=== PATIENT | female | born 1965 ===

== ENCOUNTER 2016-10-12 12:03 | Emergency (ER) | payer SELFPAY ==
[2016-10-12 13:38] LABS: RBC URINE 2 /hpf (0-3); URINE BACTERIA RARE (<OCC); URINE BILIRUBIN NEGATIVE (NEGATIVE); URINE BLOOD NEGATIVE (NEGATIVE); URINE COLOR YELLOW (YELLOW); URINE GLUCOSE (UA) NEG (Normal); URINE KETONE NEGATIVE (NEGATIVE); URINE LEUKOCYTE ESTERASE NEG Leu/uL (Negative); URINE PROTEIN NEGATIVE (NEGATIVE); URINE UROBILINOGEN 0.2-1.0 mg/dL (0.2-1.0); WBC URINE < 1 /hpf (0-5)
--- NOTE | 2016-10-12 13:50 | ED PDOC ---
Lower Extremity Pain/Injury Time Seen by Provider: 10/12/16 12:51 Chief Complaint (Nursing): Lower Extremity Problem/Injury Chief Complaint (Provider): Lower Extremity Problem/Injury History Per: Family () History/Exam Limitations: language barrier Onset/Duration Of Symptoms: Days (x2 days) Current Symptoms Are (Timing): Still Present Additional Complaint(s): Brisa Field is a 51 year old female with no previous medical history, who presents to the emergency department accompanied by her with a complaint of bilateral pain and swelling to her feet ongoing for 2 days. Also, she states she has been experiencing headaches on the top of head radiating back towards the base. Denies any further medical complaints. PMD: none provided Past Medical History Reviewed: Historical Data, Nursing Documentation, Vital Signs Vital Signs: Last Vital Signs Temp 97.9 F 10/12/16 12:17 Pulse 93 H 10/12/16 12:17 Resp 20 10/12/16 12:17 BP 143/88 10/12/16 12:17 Pulse Ox 99 10/12/16 12:17 - Medical History PMH: Gastritis Denies: Hypercholesterolemia, Chronic Kidney Disease - Surgical History Surgical History: Other surgeries: Shoulder - Family History Family History: States: Unknown Family Hx - Social History Current smoker - smoking cessation education provided: No Alcohol: None Drugs: Denies - Home Medications Home Medications: Ambulatory Orders Medication Instructions Recorded Ciprofloxacin HCl [Cipro] 500 mg PO Q12 #20 tablet 03/28/16 Metronidazole [Flagyl] 500 mg PO Q8 #30 tablet 03/28/16 Famotidine [Pepcid] 20 mg PO BID #28 tab 03/29/16 Ondansetron [Zofran] 4 mg PO Q8H #5 tab 03/29/16 Metoclopramide [Reglan] 10 mg PO Q8 PRN #20 tab 06/24/16 - Allergies Allergies/Adverse Reactions: Allergies Allergy/AdvReac Type Severity Reaction Status Date / Time No Known Allergies Allergy Verified 10/12/16 12:17 Review of Systems ROS Statement: Except As Marked, All Systems Reviewed And Found Negative Constitutional: Negative for: Fever, Chills Musculoskeletal: Positive for: Foot Pain (B/L pain and swelling on dorsal aspect of feet) Neurological: Positive for: Headache (top of head radiates back towards base) Physical Exam - Reviewed Nursing Documentation Reviewed: Yes Vital Signs Reviewed: Yes - Physical Exam Appears: Positive for: Well, Non-toxic, No Acute Distress Head Exam: Positive for: ATRAUMATIC, NORMAL INSPECTION, NORMOCEPHALIC Skin: Positive for: Normal Color, Warm, Dry Eye Exam: Positive for: Normal appearance, EOMI, PERRL ENT: Positive for: Normal ENT Inspection Neck: Positive for: Normal, Painless ROM, Supple Cardiovascular/Chest: Positive for: Regular Rate, Rhythm Respiratory: Positive for: Normal Breath Sounds Gastrointestinal/Abdominal: Positive for: Normal Exam, Bowel Sounds, Soft. Negative for: Tenderness Back: Positive for: Normal Inspection Extremity: Positive for: Normal ROM. Negative for: Tenderness, Pedal Edema, Calf Tenderness Neurologic/Psych: Positive for: Alert, Oriented - Laboratory Results Result Diagrams: 10/12/16 13:52 10/12/16 13:16 - ECG O2 Sat by Pulse Oximetry: 99 (RA) Pulse Ox Interpretation: Normal Medical Decision Making Medical Decision Making: Initial Impression: Bilateral leg swelling, Headache Initial Plan: * CT head w/o contrast * EKG * B-type natriuretic peptide * Labs * Urine dipstick * Urine * PTT * PT * Tylenol 650 mg PO * Urinalysis * US duplex lower extremities B/L * reevaluation CT head FINDINGS: HEMORRHAGE: No intracranial hemorrhage. BRAIN: No mass effect or edema. No atrophy or chronic microvascular ischemic changes. VENTRICLES: Unremarkable. No hydrocephalus. CALVARIUM: Unremarkable. PARANASAL SINUSES: Unremarkable as visualized. No significant inflammatory changes. MASTOID AIR CELLS: Unremarkable as visualized. No inflammatory changes. OTHER FINDINGS: None. IMPRESSION: No evidence of acute intracranial hemorrhage intracranial collection mass effect or midline shift. No significant interval change since the previous exam. Scribe Attestation: Documented by Carina Christensen, acting as a scribe for Carola Foster MD. Provider Scribe Attestation: All medical record entries made by the Scribe were at my direction and personally dictated by me. I have reviewed the chart and agree that the record accurately reflects my personal performance of the history, physical exam, medical decision making, and the department course for this patient. I have also personally directed, reviewed, and agree with the discharge instructions and disposition.
[2016-10-12 14:14] LABS: BASO # 0.1 K/uL (0.0-0.2); BASO % 1.3 % (0.0-2.0); EOS # 0.1 K/uL (0.0-0.7); EOS % 1.8 % (0.0-4.0); HEMATOCRIT 37.4 % (34.0-47.0); LYMPH # 1.8 K/uL (1.0-4.3); LYMPH % 25.4 % (20.0-40.0); MEAN CELL VOLUME 88.3 fl (81.0-99.0); MEAN CORPUSCULAR HEMOGLOBIN 29.3 pg (27.0-31.0); MEAN CORPUSCULAR HGB CONC 33.1 g/dL (33.0-37.0); MEAN PLATELET VOLUME 7.9 fl (7.2-11.7); MONO # 0.4 K/uL (0.0-0.8); MONO % 5.6 % (0.0-10.0); NEUT # 4.7 K/uL (1.8-7.0); NEUT % 65.9 % (50.0-75.0); RED CELL DISTRIBUTION WIDTH 14.1 % (11.5-14.5); WHITE BLOOD COUNT 7.1 K/uL (4.8-10.8)
[2016-10-12 14:25] LABS: ALB/GLOB RATIO 1.2 (1.0-2.1); ALKALINE PHOSPHATASE 95 U/L (38-126); ALT/SGPT 30 U/L (9-52); AST/SGOT 31 U/L (14-36); BILIRUBIN,TOTAL 0.6 mg/dl (0.2-1.3); BLOOD UREA NITROGEN 8 mg/dl (7-17); CALCIUM 8.6 mg/dL (8.4-10.2); CARBON DIOXIDE 23 mmol/L (22-30); CHLORIDE 105 mmol/L (98-107); GFR AFRICAN-AMERICAN > 60; GLUCOSE,RANDOM 93 mg/dL (65-105); POTASSIUM 4.1 MMOL/L (3.6-5.0); SODIUM 139 mmol/l (132-148); TOTAL PROTEIN 8.5 G/DL (6.3-8.2)
--- NOTE | 2016-10-12 14:37 | CT ---
PROCEDURE: CT HEAD WITHOUT CONTRAST. HISTORY: LU COMPARISON: Comparison is made to the previous study dated 09/22/2014 TECHNIQUE: Axial computed tomography images were obtained through the head/brain without intravenous contrast. Radiation dose: Total exam DLP = 865.4 mGy-cm. This CT exam was performed using one or more of the following dose reduction techniques: Automated exposure control, adjustment of the mA and/or kV according to patient size, and/or use of iterative reconstruction technique. FINDINGS: HEMORRHAGE: No intracranial hemorrhage. BRAIN: No mass effect or edema. No atrophy or chronic microvascular ischemic changes. VENTRICLES: Unremarkable. No hydrocephalus. CALVARIUM: Unremarkable. PARANASAL SINUSES: Unremarkable as visualized. No significant inflammatory changes. MASTOID AIR CELLS: Unremarkable as visualized. No inflammatory changes. OTHER FINDINGS: None. IMPRESSION: No evidence of acute intracranial hemorrhage intracranial collection mass effect or midline shift. No significant interval change since the previous exam.
[2016-10-12 14:48] VITALS: RESP 18
[2016-10-12 14:55] VITALS: O2SAT 99
[2016-10-12 15:18] LABS: PARTIAL THROMBOPLASTIN TIME 24.7 Seconds (25.6-37.1)
--- NOTE | 2016-10-12 15:44 | US ---
PROCEDURE: Bilateral lower extremity venous duplex Doppler. HISTORY: BLE swelling COMPARISON: None available. TECHNIQUE: Bilateral common femoral, superficial femoral, popliteal and posterior tibial veins were evaluated. Flow was assessed with color Doppler, compressibility, assessment of phasic flow and augmentation response. FINDINGS: COMMON FEMORAL VEIN: Right CFV: Unremarkable. Left CFV: Unremarkable. SUPERFICIAL FEMORAL VEIN: Right SFV: Unremarkable. Left SFV: Unremarkable. POPLITEAL VEIN: Right Popliteal: Unremarkable. Left Popliteal: Unremarkable. POSTERIOR TIBIAL VEIN: Right PTV: Unremarkable. Left PTV: Unremarkable. OTHER FINDINGS: None. IMPRESSION: No evidence of deep venous thrombosis.
--- NOTE | 2016-10-12 15:46 | ED PDOC ---
- Laboratory Results Result Diagrams: 10/12/16 13:52 10/12/16 13:16 Interpretation Of Abn Labs: no acute - ECG ECG: Positive for: Interpreted By Me, Viewed By Me ECG Rhythm: Positive for: Normal QRS, Normal ST Segment, Sinus Rhythm O2 Sat by Pulse Oximetry: 99 (RA) Pulse Ox Interpretation: Normal - Progress ED Course And Treament: 1545: Stable. AAOx3. Pain free. Tolerated PO. Ambulating around ER. Ate [employer]. Wants to go home. Medical Decision Making Medical Decision Making: Time: 15:00 --Transferred patient from Dr. Foster --Pending CT, reassessment, and disposition. Time: 15:42 --Duplex US FINDINGS: COMMON FEMORAL VEIN: Right CFV: Unremarkable. Left CFV: Unremarkable. SUPERFICIAL FEMORAL VEIN: Right SFV: Unremarkable. Left SFV: Unremarkable. POPLITEAL VEIN: Right Popliteal: Unremarkable. Left Popliteal: Unremarkable. POSTERIOR TIBIAL VEIN: Right PTV: Unremarkable. Left PTV: Unremarkable. OTHER FINDINGS: None. IMPRESSION: No evidence of deep venous thrombosis. Scribe Attestation: Documented by Keerthi Acuña, acting as a scribe for Lenard Doss MD. Provider Scribe Attestation: All medical record entries made by the Scribe were at my direction and personally dictated by me. I have reviewed the chart and agree that the record accurately reflects my personal performance of the history, physical exam, medical decision making, and the department course for this patient. I have also personally directed, reviewed, and agree with the discharge instructions and disposition. Disposition Counseled Patient/Family Regarding: Studies Performed, Diagnosis, Need For Followup - Clinical Impression Clinical Impression: Leg swelling, Headache - POA Present On Arrival: None - Disposition Referrals: [facility] [Outside] - 10/15/16 Disposition: Routine/Home Disposition Time: 15:49 Condition: STABLE Additional Instructions: Return if not better in 3 days. Instructions: Leg Edema (ED), Acute Headache (ED) Print Language: ROMANSH
[2016-10-12 15:50] VITALS: BP 140/80; PULSE 81; TEMP 97.7
--- NOTE | 2016-10-12 19:31 | CARD ---
APPROVED REPORT EKG Measurement Heart [id number] <Conclusion> Normal sinus rhythm Normal ECG
== END 2016-10-12 16:00 | disposition home or self-care (01) ==
LOC: H.ER 12:03
DX: R60.0 Localized edema (principal); R51 Headache

== ENCOUNTER 2017-01-31 11:43 | Emergency (ER) | payer OTHER, SELFPAY ==
[2017-01-31 11:58] VITALS: BP 141/84; PULSE 76; O2SAT 98
[2017-01-31 12:20] VITALS: RESP 14; TEMP 97
== END 2017-01-31 13:09 | disposition home or self-care (01) ==
LOC: H.ER 11:43
DX: M25.561 Pain in right knee (principal)

== ENCOUNTER 2017-01-31 21:34 | Emergency (ER) | payer OTHER ==
[2017-01-31 21:45] VITALS: RESP 16; TEMP 97.9
[2017-01-31] MEDS ORDERED: Alum-Mag Hydrox-Simethicone Susp (30 mL) PO STA (22:14)
[2017-01-31] MEDS ORDERED: Sodium Chloride 0.9% 1,000 ML IV STA (22:14)
[2017-01-31] MEDS ORDERED: Alum-Mag Hydrox-Simethicone Susp (30 mL) ONE (22:46)
[2017-01-31 23:08] LABS: HEMATOCRIT 34.5 % (34.0-47.0); MEAN CELL VOLUME 89.2 fl (81.0-99.0); MEAN CORPUSCULAR HEMOGLOBIN 29.8 pg (27.0-31.0); MEAN CORPUSCULAR HGB CONC 33.5 g/dL (33.0-37.0); RED CELL DISTRIBUTION WIDTH 13.8 % (11.5-14.5); WHITE BLOOD COUNT 6.3 K/uL (4.8-10.8)
[2017-01-31 23:16] LABS: ALB/GLOB RATIO 1.2 (1.0-2.1); ALKALINE PHOSPHATASE 82 U/L (38-126); ALT/SGPT 31 U/L (9-52); AST/SGOT 28 U/L (14-36); BILIRUBIN,TOTAL 0.2 mg/dl (0.2-1.3); BLOOD UREA NITROGEN 13 mg/dl (7-17); CALCIUM 9.3 mg/dL (8.4-10.2); CARBON DIOXIDE 22 mmol/L (22-30); CHLORIDE 103 mmol/L (98-107); GFR AFRICAN-AMERICAN > 60; GLUCOSE,RANDOM 109 mg/dL (65-105); POTASSIUM 3.9 MMOL/L (3.6-5.0); SODIUM 140 mmol/l (132-148); TOTAL PROTEIN 7.8 G/DL (6.3-8.2)
[2017-02-01 00:09] VITALS: BP 150/95; PULSE 80; O2SAT 100
== END 2017-02-01 00:58 | disposition home or self-care (01) ==
LOC: H.ER 21:34
DX: K29.70 Gastritis, unspecified, without bleeding (principal)
CPT/HCPCS: 80053; 81025; 84484; 85027; 93005; 96360; 99283; J2405; J7040

== ENCOUNTER 2017-02-09 18:01 | Emergency (ER) | payer SELFPAY ==
[2017-02-09 18:09] VITALS: BP 174/104; PULSE 97; RESP 16; TEMP 98.8; O2SAT 99
[2017-02-09] MEDS ORDERED: Sodium Chloride 0.9% 1,000 ML IV STA (18:49)
--- NOTE | 2017-02-09 19:38 | ED PDOC ---
HPI: Abdomen Time Seen by Provider: 02/09/17 18:33 Chief Complaint (Nursing): Abdominal Pain Chief Complaint (Provider): abdominal pain History Per: Patient History/Exam Limitations: no limitations Additional Complaint(s): 51yo F in Ed for eval of abdominal Pain-epigastric area with associated vomiting and nausea since last night to this AM. no longer vomiting but feels nauseous and with epigastric pain 6/10 sharp without radiation to back. no hx of cholecystitis/ pancreatitis or cholecystectomy. denies change in BM, CP, palpitations, headache or vision changes. admits to heavy drinking last night 6 or more 12oz beers. hx of gastritis. Past Medical History Reviewed: Historical Data, Nursing Documentation, Vital Signs Vital Signs: Last Vital Signs Temp 98.8 F 02/09/17 18:06 Pulse 97 H 02/09/17 18:06 Resp 16 02/09/17 18:06 BP 174/104 H 02/09/17 18:06 Pulse Ox 99 02/09/17 19:51 - Medical History PMH: Gastritis Denies: Hypercholesterolemia, Chronic Kidney Disease - Surgical History Surgical History: - Family History Family History: States: Unknown Family Hx - Home Medications Home Medications: Ambulatory Orders Medication Instructions Recorded Famotidine [Pepcid] 20 mg PO BID #28 tab 02/01/17 - Allergies Allergies/Adverse Reactions: Allergies Allergy/AdvReac Type Severity Reaction Status Date / Time No Known Allergies Allergy Verified 01/31/17 21:42 Review of Systems ROS Statement: Except As Marked, All Systems Reviewed And Found Negative Constitutional: Negative for: Fever, Chills Gastrointestinal: Positive for: Nausea, Vomiting, Abdominal Pain Physical Exam - Reviewed Nursing Documentation Reviewed: Yes Vital Signs Reviewed: Yes - Physical Exam Appears: Positive for: Non-toxic, No Acute Distress, Uncomfortable Head Exam: Positive for: ATRAUMATIC, NORMAL INSPECTION, NORMOCEPHALIC Skin: Positive for: Normal Color, Warm, DRY Cardiovascular/Chest: Positive for: Regular Rate, Rhythm Respiratory: Positive for: CNT, Normal Breath Sounds Gastrointestinal/Abdominal: Positive for: Bowel Sounds, Soft, Tenderness ( epigastric tendenress) Back: Negative for: L CVA Tenderness, R CVA Tenderness Extremity: Positive for: Normal ROM Neurologic/Psych: Positive for: Alert, Oriented - ECG O2 Sat by Pulse Oximetry: 99 - Progress ED Course And Treament: most likely exacerbation of gastritis due to drinking will order IV fluids, zofran pepcid and re-eval. Orders Category Date Time Status LIPASE Stat Chem 02/09/17 19:46 Ordered Famotidine [Pepcid] Med 02/09/17 19:05 Discontinued 20 mg .ROUTE .STK-MED ONE Famotidine [Pepcid] Med 02/09/17 18:57 Stat 20 mg IVP STAT STA Ondansetron [Zofran Inj] Med 02/09/17 19:04 Discontinued 4 mg .ROUTE .STK-MED ONE Ondansetron [Zofran Inj] Med 02/09/17 18:52 Stat 4 mg IVP STAT STA Ondansetron [Zofran Inj] Med 02/09/17 18:57 Stat 4 mg IVP STAT STA Sodium Chloride 0.9% 1,000 ml Med 02/09/17 18:49 Ordered IV 1,000 mls/hr Re-evaluation Time: 19:58 Condition: Improved Disposition - Clinical Impression Clinical Impression: Gastritis - Patient ED Disposition Is Patient to be Admitted: Transfer of Care - Disposition Disposition Time: 19:58 Condition: IMPROVED Forms: [employer] (Citizen Of [place]) Patient Signed Over To: Ladonna Jaeger (pending labs)
[2017-02-09 20:08] LABS: BASO # 0.1 K/uL (0.0-0.2); BASO % 0.6 % (0.0-2.0); EOS % 0.2 % (0.0-4.0); HEMATOCRIT 38.7 % (34.0-47.0); LYMPH # 1.1 K/uL (1.0-4.3); LYMPH % 10.4 % (20.0-40.0); MEAN CELL VOLUME 88.6 fl (81.0-99.0); MEAN CORPUSCULAR HEMOGLOBIN 29.6 pg (27.0-31.0); MEAN CORPUSCULAR HGB CONC 33.4 g/dL (33.0-37.0); MEAN PLATELET VOLUME 8.4 fl (7.2-11.7); MONO # 0.3 K/uL (0.0-0.8); MONO % 2.5 % (0.0-10.0); NEUT # 9.4 K/uL (1.8-7.0); NEUT % 86.3 % (50.0-75.0); RED CELL DISTRIBUTION WIDTH 13.9 % (11.5-14.5); WHITE BLOOD COUNT 10.9 K/uL (4.8-10.8)
[2017-02-09 20:16] LABS: ALB/GLOB RATIO 1.3 (1.0-2.1); ALKALINE PHOSPHATASE 97 U/L (38-126); ALT/SGPT 31 U/L (9-52); AST/SGOT 37 U/L (14-36); BILIRUBIN,TOTAL 0.5 mg/dl (0.2-1.3); BLOOD UREA NITROGEN 9 mg/dl (7-17); CALCIUM 9.2 mg/dL (8.4-10.2); CARBON DIOXIDE 21 mmol/L (22-30); CHLORIDE 105 mmol/L (98-107); GFR AFRICAN-AMERICAN > 60; GLUCOSE,RANDOM 112 mg/dL (65-105); LIPASE 158 U/L (23-300); POTASSIUM 4.1 MMOL/L (3.6-5.0); SODIUM 144 mmol/l (132-148); TOTAL PROTEIN 8.9 G/DL (6.3-8.2)
--- NOTE | 2017-02-09 20:16 | ED PDOC ---
- Laboratory Results Result Diagrams: 02/09/17 20:00 02/09/17 20:00 - ECG O2 Sat by Pulse Oximetry: 99 Pulse Ox Interpretation: Normal - Other Rad Abd US X-Ray: Read By Radiologist X-Ray Interpretation: normal study Medical Decision Making Medical Decision Making: Case was signed out to administrative underwriter from LUCY Edwards pending Abd US and re-evaluation. 10:00 pm: patient still has epigastric pain, maalox 30 mg PO given. US pending. 11:50 pm: Patient states she feels much better after Maalox dose. US is negative. Patient aware of all diagnostic testing results, all questions answered. Prescriptions given for Pepcid and Zofran. Patient advised to drink plenty of fluids and follow-up with primary doctor in 2-3 days. Disposition Counseled Patient/Family Regarding: Studies Performed, Diagnosis, Need For Followup, Rx Given - Clinical Impression Clinical Impression: Gastritis - POA Present On Arrival: None - Disposition Referrals: [facility] [Outside] Disposition: Routine/Home Disposition Time: 23:58 Condition: IMPROVED Additional Instructions: Take prescription meds as directed. Follow dietary instructions. Follow up with primary doctor or clinic in 2-3 days. Prescriptions: Famotidine [Pepcid] 20 mg PO DAILY #30 tab Ondansetron [Zofran Odt] 4 mg PO ASDIR PRN #15 odt PRN Reason: Nausea/Vomiting Instructions: Diet for Ulcers and Gastritis (ED), Gastritis (ED) Forms: [employer] (Icelandic) Print Language: MALTESE Results - Lab Results Lab Results: 02/09/17 02/09/17 20:00 20:00 WBC 10.9 H D RBC 4.36 Hgb 12.9 Hct 38.7 MCV 88.6 MCH 29.6 MCHC 33.4 RDW 13.9 Plt Count 312 MPV 8.4 Neut % (Auto) 86.3 H Lymph % (Auto) 10.4 L Clayton % (Auto) 2.5 Eos % (Auto) 0.2 Baso % (Auto) 0.6 Neut # 9.4 H Lymph # 1.1 Clayton # 0.3 Eos # 0.0 Baso # 0.1 Sodium 144 Potassium 4.1 Chloride 105 Carbon Dioxide 21 L Anion Gap 22 H BUN 9 Creatinine 0.6 L Est GFR ( Amer) > 60 Est GFR (Non-Af Amer) > 60 Random Glucose 112 H Calcium 9.2 Total Bilirubin 0.5 AST 37 H D ALT 31 Alkaline Phosphatase 97 Total Protein 8.9 H Albumin 5.0 Globulin 3.9 Albumin/Globulin Ratio 1.3 Lipase 158
[2017-02-09] MEDS ORDERED: Alum-Mag Hydrox-Simethicone Susp (30 mL) PO STA (21:58)
[2017-02-09] MEDS ORDERED: Alum-Mag Hydrox-Simethicone Susp (30 mL) ONE (22:21)
--- NOTE | 2017-02-09 23:48 | US ---
EXAM: US Abdomen Limited, Right Upper Quadrant CLINICAL HISTORY: 51 years old, female; Pain; Abdominal pain; Colic; Additional info: Ruq pain TECHNIQUE: Real-time ultrasound of the right upper quadrant with image documentation. COMPARISON: No relevant prior studies available. FINDINGS: Liver: Liver measures 16.4 CM longitudinally. No intrahepatic bile duct dilation. Gallbladder: Gallbladder is unremarkable. No gallstones. Common bile duct: Common bile duct measures 3.6 mm which is normal. No stones. No dilation. Pancreas: Pancreas is unremarkable. Right kidney: Right kidney measures 10.8 CM longitudinally. No stones. No hydronephrosis. Aorta: Aorta is unremarkable. No aneurysm. Inferior vena cava: IVC is unremarkable. IMPRESSION: Unremarkable ultrasound of the right upper quadrant.
== END 2017-02-10 00:16 | disposition home or self-care (01) ==
LOC: H.ER 18:01
DX: K29.70 Gastritis, unspecified, without bleeding (principal)
CPT/HCPCS: 76705; 80053; 81025; 83690; 85025; 96374; 96375; 99282; J2405; J7040

== ENCOUNTER 2017-02-12 10:23 | Emergency (ER) | payer SELFPAY ==
[2017-02-12 10:48] VITALS: BP 147/79; PULSE 85; RESP 20; TEMP 97.6; O2SAT 98; BMI 32.9
--- NOTE | 2017-02-12 11:01 | ED PDOC ---
HPI: Back Time Seen by Provider: 02/12/17 10:51 Chief Complaint (Nursing): Lower Extremity Problem/Injury History Per: Patient (Low back pain x 6 months intermittent. Radiates to both legs. No weakness or parasthesias. No h/o trauma or fever. Also c/o bilat knee pain x 2 months. No h/o trauma.) Onset/Duration Of Symptoms: Other (6 months) Current Symptoms Are (Timing): Still Present Quality Of Discomfort: Aching Severity: Moderate Pain Scale Rating Of: 4 Previous Symptoms: Back Pain Exacerbating Factor(s): Movement Past Medical History Vital Signs: Last Vital Signs Temp 97.6 F 02/12/17 10:47 Pulse 85 02/12/17 10:47 Resp 20 02/12/17 10:47 BP 147/79 02/12/17 10:47 Pulse Ox 98 02/12/17 10:47 - Medical History PMH: Gastritis Denies: Hypercholesterolemia, Chronic Kidney Disease - Surgical History Surgical History: - Family History Family History: States: Unknown Family Hx - Home Medications Home Medications: Ambulatory Orders Medication Instructions Recorded Famotidine [Pepcid] 20 mg PO BID #28 tab 02/01/17 Famotidine [Pepcid] 20 mg PO DAILY #30 tab 02/09/17 Ondansetron [Zofran Odt] 4 mg PO ASDIR PRN #15 odt 02/09/17 Cyclobenzaprine [Cyclobenzaprine 10 mg PO TID #10 tab 02/12/17 HCl] Naproxen [Naprosyn] 500 mg PO Q12H #20 tab 02/12/17 - Allergies Allergies/Adverse Reactions: Allergies Allergy/AdvReac Type Severity Reaction Status Date / Time No Known Allergies Allergy Verified 01/31/17 21:42 Review of Systems Constitutional: Negative for: Fever Musculoskeletal: Positive for: Back Pain, Other (Knee pain) Neurological: Negative for: Weakness, Numbness Physical Exam - Physical Exam Appears: Positive for: Non-toxic, No Acute Distress Skin: Negative for: Rash Back: Positive for: Normal Inspection, Other (Bilat para lumbar tenderness). Negative for: Vertebral Tenderness Extremity: Positive for: Normal ROM (Knees, no swelling or deformity. No tenderness.) Neurologic/Psych: Positive for: Alert, Oriented. Negative for: Motor/Sensory Deficits - ECG O2 Sat by Pulse Oximetry: 98 Disposition - Clinical Impression Clinical Impression: Chronic pain of both knees, Chronic back pain - Patient ED Disposition Is Patient to be Admitted: No Counseled Patient/Family Regarding: Studies Performed, Diagnosis, Need For Followup, Rx Given - Disposition Referrals: Dejuan Franco MD [Staff Provider] - Disposition: Routine/Home Disposition Time: 12:22 Condition: FAIR Prescriptions: Cyclobenzaprine [Cyclobenzaprine HCl] 10 mg PO TID #10 tab Naproxen [Naprosyn] 500 mg PO Q12H #20 tab Instructions: Chronic Back Pain (ED), Knee Pain (ED) Forms: [facility] (Turkmen) Print Language: SAMI
--- NOTE | 2017-02-12 15:24 | RAD ---
PROCEDURE: Bilateral Knee Radiographs. HISTORY: Pain COMPARISON: None. FINDINGS: BONES: Right Knee: Normal. No fracture. Left Knee: Normal. No fracture. JOINTS: Right Knee: Normal. Left knee: Normal. SOFT TISSUES: Right Knee: Normal. Left Knee: Normal. JOINT EFFUSION: Right Knee: Small right suprapatellar joint effusion. Left Knee: None. OTHER FINDINGS: None. IMPRESSION: No acute fracture or significant degenerative osteoarthrosis. Small right suprapatellar joint effusion.
== END 2017-02-12 13:06 | disposition home or self-care (01) ==
LOC: H.ER 10:23
DX: M25.561 Pain in right knee (principal); M25.562 Pain in left knee; M54.9 Dorsalgia, unspecified; G89.29 Other chronic pain

== ENCOUNTER 2017-02-22 21:42 | Emergency (ER) | payer SELFPAY ==
[2017-02-22 21:42] VITALS: BMI 32.9
[2017-02-22 21:49] VITALS: BP 153/130; PULSE 110; RESP 16; TEMP 99.9; O2SAT 98
[2017-02-22] MEDS ORDERED: Promethazine/Cod 6.25mg-10mg/5ml Syr UD PO STA (22:06)
[2017-02-22] MEDS ORDERED: Albuterol-Ipratrop 3 mg / 0.5 (3 ml) UD INH STA (22:06)
--- NOTE | 2017-02-22 22:18 | ED PDOC ---
HPI: General Adult Time Seen by Provider: 02/22/17 21:50 Chief Complaint (Nursing): Fever History Per: Patient History/Exam Limitations: no limitations Additional Complaint(s): 51 y/o F c/o of cough that began 10 days ago. Cough is constant, productive with yellow thick sputum and progressively aggravating. Pt also complains of feeling feverish since 2 days ago. Pt also reports headache, chest pain, sore throat, generalized body aches and chest congestion. Pt tried OTC cough suppressant with NO improvement. LMP: today. Pt denies rash, nausea, vomiting, abdominal pain, nasal congestion, runny nose or dizziness. NKDA PMHx: denied. PSHx: denied FHx: NC SHx: No tobacco, alcohol or rec drugs. Geophysical Computer: pt currently on her period. Past Medical History Vital Signs: Last Vital Signs Temp 99.9 F H 02/22/17 23:05 Pulse 110 H 02/22/17 21:45 Resp 16 02/22/17 21:45 BP 153/130 H 02/22/17 21:45 Pulse Ox 98 02/22/17 23:18 - Medical History PMH: No Chronic Diseases, Gastritis Denies: Hypercholesterolemia, Chronic Kidney Disease - Surgical History Surgical History: - Family History Family History: States: No Known Family Hx - Home Medications Home Medications: Ambulatory Orders Medication Instructions Recorded Famotidine [Pepcid] 20 mg PO BID #28 tab 02/01/17 Famotidine [Pepcid] 20 mg PO DAILY #30 tab 02/09/17 Ondansetron [Zofran Odt] 4 mg PO ASDIR PRN #15 odt 02/09/17 Cyclobenzaprine [Cyclobenzaprine 10 mg PO TID #10 tab 02/12/17 HCl] Naproxen [Naprosyn] 500 mg PO Q12H #20 tab 02/12/17 Albuterol HFA [Ventolin HFA 90 1 - 2 puff IH Q6 PRN #1 inhaler 02/22/17 mcg/actuation (8 g)] Benzonatate [Tessalon Perle] 100 mg PO TID PRN #15 capsule 02/22/17 - Allergies Allergies/Adverse Reactions: Allergies Allergy/AdvReac Type Severity Reaction Status Date / Time No Known Allergies Allergy Verified 01/31/17 21:42 Review of Systems Constitutional: Positive for: Fever, Chills. Negative for: Sweats ENT: Positive for: Throat Pain. Negative for: Ear Pain, Ear Discharge, Nose Discharge Cardiovascular: Positive for: Chest Pain. Negative for: Palpitations, Orthopnea Respiratory: Positive for: Cough (associated with chest congestion.) Gastrointestinal: Negative for: Nausea, Vomiting, Abdominal Pain Musculoskeletal: Positive for: Other (generalized body aches.) Neurological: Positive for: Headache Physical Exam - Physical Exam Appears: Positive for: Well. Negative for: No Acute Distress Head Exam: Positive for: ATRAUMATIC, NORMAL INSPECTION Eye Exam: Positive for: EOMI, PERRL ENT: Positive for: TM Is/Are (normal.), Pharyngeal Erythema. Negative for: Sinus Pain/Drainage, Nasal Congestion, Tonsillar Swelling Neck: Positive for: Normal, Supple Cardiovascular/Chest: Positive for: Regular Rate, Rhythm Respiratory: Positive for: Decreased Breath Sounds (Congested breath sounds.). Negative for: Crackles, Rhonchi, Stridor, Wheezing Gastrointestinal/Abdominal: Positive for: Normal Exam Neurologic/Psych: Positive for: Alert, Oriented - ECG O2 Sat by Pulse Oximetry: 98 Medical Decision Making Medical Decision Makin51 y/o F presenting with productive cough, chest pain and fever. Rule out pneumonia, infectious bronchitis, an influenza. Plan: --Chest X ray --EKG --Urine dipstick --Peak flow --Rapid Influenza A/B screening --Rapid Strep A --Codeine/Promethazine --Albuterol nebulizer 23:17 Pt s/p nebulizer therapy, reports improvement of chest pain, chest congestion and sore throat. Waiting for chest X ray. 23:35 X-ray is unremarkable. Pt stable, feeling better, will be discharged. Pt educated on conservative management and to follow up with PCP within 1-2 weeks. Return to ER if No improvement. Disposition - Clinical Impression Clinical Impression: Bronchitis - Patient ED Disposition Is Patient to be Admitted: No - Disposition Disposition: Routine/Home Disposition Time: 23:38 Condition: GOOD Prescriptions: Albuterol HFA [Ventolin HFA 90 mcg/actuation (8 g)] 1 - 2 puff IH Q6 PRN #1 inhaler PRN Reason: Shortness Of Breath Benzonatate [Tessalon Perle] 100 mg PO TID PRN #15 capsule PRN Reason: Cough Instructions: Acute Bronchitis (ED) Forms: [facility] (Citizen Of [place]) Print Language: WOLOF
[2017-02-22] MEDS ORDERED: Albuterol-Ipratrop 3 mg / 0.5 (3 ml) UD ONE (22:24)
[2017-02-22] MEDS ORDERED: Promethazine/Cod 6.25mg-10mg/5ml Syr UD ONE (22:25)
[2017-02-22 23:44] LABS: URINE BACTERIA RARE (<OCC); URINE BILIRUBIN NEGATIVE (NEGATIVE); URINE BLOOD LARGE (NEGATIVE); URINE COLOR YELLOW (YELLOW); URINE GLUCOSE (UA) NEG (Normal); URINE KETONE NEGATIVE (NEGATIVE); URINE LEUKOCYTE ESTERASE MOD Leu/uL (Negative); URINE PROTEIN 30 mg/dL (NEGATIVE); URINE UROBILINOGEN 0.2-1.0 mg/dL (0.2-1.0); WBC URINE 3 /hpf (0-5)
[2017-02-23 00:21] LABS: RBC URINE 40 /hpf (0-3)
--- NOTE | 2017-02-23 08:20 | CARD ---
APPROVED REPORT EKG Measurement Heart [id number] <Conclusion> Sinus tachycardia Otherwise normal ECG
--- NOTE | 2017-02-23 10:05 | RAD ---
HISTORY: COMPARISON: 03/28/2016. TECHNIQUE: Chest PA and lateral FINDINGS: LINES AND TUBES: None. LUNG AND PLEURA: The lungs are well inflated and clear. HEART AND MEDIASTINUM: The heart is not enlarged. The hilar and mediastinal contours are within normal limits. SKELETAL STRUCTURES: The bony structures are within normal limits for the patient's age. VISUALIZED UPPER ABDOMEN: Normal. OTHER FINDINGS: None. IMPRESSION: No active pulmonary disease.
== END 2017-02-22 23:42 | disposition home or self-care (01) ==
LOC: H.ER 21:42
DX: J40 Bronchitis, not specified as acute or chronic (principal)

== ENCOUNTER 2017-06-26 07:55 | Emergency (ER) | payer OTHER ==
[2017-06-26 07:55] VITALS: BMI 32.9
[2017-06-26 08:28] VITALS: BP 145/87; PULSE 77; RESP 18; TEMP 976; O2SAT 99
--- NOTE | 2017-06-26 08:32 | ED PDOC ---
Lower Extremity Pain/Injury Time Seen by Provider: 06/26/17 08:14 Chief Complaint (Nursing): Lower Extremity Problem/Injury Chief Complaint (Provider): Bilateral Knee Pain History Per: Patient History/Exam Limitations: no limitations Onset/Duration Of Symptoms: Persistent (x4 months) Current Symptoms Are (Timing): Still Present Additional Complaint(s): Brisa Field is a 51 year old female with a history of gastritis that presents to the ED with a chief complaint of bilateral knee pain that she has been experiencing for the past four months. Patient reports that pain is worsened with movement and walking. She states that she has been taking Advil at home. Past Medical History Reviewed: Historical Data, Vital Signs Vital Signs: Last Vital Signs Temp 976 F H 06/26/17 08:16 Pulse 77 06/26/17 08:16 Resp 18 06/26/17 08:16 BP 145/87 06/26/17 08:16 Pulse Ox 99 06/26/17 08:16 - Medical History PMH: Gastritis Denies: Hypercholesterolemia, Chronic Kidney Disease - Surgical History Surgical History: - Family History Family History: States: Unknown Family Hx - Social History Current smoker - smoking cessation education provided: No Alcohol: None - Home Medications Home Medications: Ambulatory Orders Medication Instructions Recorded Famotidine [Pepcid] 20 mg PO BID #28 tab 02/01/17 Famotidine [Pepcid] 20 mg PO DAILY #30 tab 02/09/17 Ondansetron [Zofran Odt] 4 mg PO ASDIR PRN #15 odt 02/09/17 Cyclobenzaprine [Cyclobenzaprine 10 mg PO TID #10 tab 02/12/17 HCl] Naproxen [Naprosyn] 500 mg PO Q12H #20 tab 02/12/17 Albuterol HFA [Ventolin HFA 90 1 - 2 puff IH Q6 PRN #1 inhaler 02/22/17 mcg/actuation (8 g)] Benzonatate [Tessalon Perle] 100 mg PO TID PRN #15 capsule 02/22/17 Naproxen [Naprosyn] 500 mg PO BID PRN #15 tablet 06/26/17 - Allergies Allergies/Adverse Reactions: Allergies Allergy/AdvReac Type Severity Reaction Status Date / Time No Known Allergies Allergy Verified 01/31/17 21:42 Review of Systems ROS Statement: Except As Marked, All Systems Reviewed And Found Negative Musculoskeletal: Positive for: Leg Pain (b/l knee pain) Physical Exam - Reviewed Nursing Documentation Reviewed: Yes Vital Signs Reviewed: Yes - Physical Exam Appears: Positive for: Non-toxic, No Acute Distress Head Exam: Positive for: ATRAUMATIC, NORMOCEPHALIC Skin: Positive for: Normal Color, Warm Eye Exam: Positive for: EOMI, Normal appearance, PERRL Cardiovascular/Chest: Positive for: Regular Rate, Rhythm. Negative for: Murmur Respiratory: Positive for: Normal Breath Sounds. Negative for: Wheezing Pulses-Dorsalis Pedis (L): 2+ Pulses-Dorsalis Pedis (R): 2+ Gastrointestinal/Abdominal: Positive for: Normal Exam, Soft. Negative for: Tenderness Back: Positive for: Normal Inspection. Negative for: L CVA Tenderness, R CVA Tenderness Extremity: Positive for: Normal ROM (full ROM b/l knees), Tenderness ( tenderness to palpation medial to patella b/l). Negative for: Pedal Edema, Calf Tenderness, Swelling, Other (No erythema, no induration) Neurologic/Psych: Positive for: Alert, Oriented. Negative for: Motor/Sensory Deficits - ECG O2 Sat by Pulse Oximetry: 99 (RA) Pulse Ox Interpretation: Normal Medical Decision Making Medical Decision Making: Impression: Bilateral Chronic Knee Pain Plan: * X-Ray bilateral knees * Toradol 30 mg IM * Urine Preg * Reevaluation X-Ray Bilateral Knees FINDINGS: BONES: Right Knee: Normal. No fracture. Left Knee: Normal. No fracture. JOINTS: Right Knee: Normal. No osteoarthritis. Left knee: Normal. No osteoarthritis. SOFT TISSUES: Right Knee: Normal. Left Knee: Normal. JOINT EFFUSION: Right Knee: None. Left Knee: None. OTHER FINDINGS: None. IMPRESSION: Normal radiographs of the knees. Scribe Attestation: Documented by Jamee Hickey, acting as a scribe for Carola Foster MD. Provider Scribe Attestation: All medical record entries made by the Scribe were at my direction and personally dictated by me. I have reviewed the chart and agree that the record accurately reflects my personal performance of the history, physical exam, medical decision making, and the department course for this patient. I have also personally directed, reviewed, and agree with the discharge instructions and disposition. Disposition - Clinical Impression Clinical Impression: Bilateral knee pain - Disposition Referrals: [facility] [Outside] Disposition: Routine/Home Disposition Time: 09:52 Condition: STABLE Prescriptions: Naproxen [Naprosyn] 500 mg PO BID PRN #15 tablet PRN Reason: Pain, Moderate (4-7) Instructions: Chronic Knee Pain Forms: [facility] (Amharic) Print Language: ESTONIAN
--- NOTE | 2017-06-26 08:47 | RAD ---
PROCEDURE: Bilateral Knee Radiographs. HISTORY: Bilateral medial knee pain COMPARISON: None. FINDINGS: BONES: Right Knee: Normal. No fracture. Left Knee: Normal. No fracture. JOINTS: Right Knee: Normal. No osteoarthritis. Left knee: Normal. No osteoarthritis. SOFT TISSUES: Right Knee: Normal. Left Knee: Normal. JOINT EFFUSION: Right Knee: None. Left Knee: None. OTHER FINDINGS: None. IMPRESSION: Normal radiographs of the knees.
== END 2017-06-26 10:00 | disposition home or self-care (01) ==
LOC: H.ER 07:55
DX: M25.561 Pain in right knee (principal); M25.562 Pain in left knee; G89.29 Other chronic pain
CPT/HCPCS: 73560; 81025; 96372; 99283; J1885

== ENCOUNTER 2017-08-22 16:46 | Emergency (ER) | payer SELFPAY ==
[2017-08-22 16:46] VITALS: BMI 32.9
[2017-08-22] MEDS ORDERED: Sodium Chloride 0.9% 1,000 ML IV STA (17:54)
--- NOTE | 2017-08-22 18:10 | ED PDOC ---
HPI: Abdomen Time Seen by Provider: 08/22/17 17:00 Chief Complaint (Nursing): GI Problem Chief Complaint (Provider): GI Problem History Per: Patient History/Exam Limitations: no limitations Onset/Duration Of Symptoms: Hrs (x5 hours) Current Symptoms Are (Timing): Still Present Additional Complaint(s): 51 y/o female with past medical history of gastritis presents to the ED complaining of nausea, vomiting, diarrhea and chills x 5 hours. Denies fever or any further medical complaints. PMD: Ashish Sahu MD Past Medical History Reviewed: Historical Data, Nursing Documentation, Vital Signs Vital Signs: Last Vital Signs Temp 97.5 F L 08/22/17 17:09 Pulse 96 H 08/22/17 17:09 Resp 16 08/22/17 17:09 BP 144/86 08/22/17 17:09 Pulse Ox 98 08/22/17 22:59 - Medical History PMH: Gastritis Denies: Hypercholesterolemia, Chronic Kidney Disease Other PMH: Sciatica - Surgical History Surgical History: Other surgeries: Tubal ligation, Right shoulder surgery - Family History Family History: States: Unknown Family Hx - Social History Current smoker - smoking cessation education provided: No (Never Smoked) Alcohol: Other (Yes) Drugs: Denies - Home Medications Home Medications: Ambulatory Orders Medication Instructions Recorded Famotidine [Pepcid] 20 mg PO BID #28 tab 02/01/17 Famotidine [Pepcid] 20 mg PO DAILY #30 tab 02/09/17 Ondansetron [Zofran Odt] 4 mg PO ASDIR PRN #15 odt 02/09/17 Cyclobenzaprine [Cyclobenzaprine 10 mg PO TID #10 tab 02/12/17 HCl] Naproxen [Naprosyn] 500 mg PO Q12H #20 tab 02/12/17 Albuterol HFA [Ventolin HFA 90 1 - 2 puff IH Q6 PRN #1 inhaler 02/22/17 mcg/actuation (8 g)] Benzonatate [Tessalon Perle] 100 mg PO TID PRN #15 capsule 02/22/17 Naproxen [Naprosyn] 500 mg PO BID PRN #15 tablet 06/26/17 Ondansetron [Zofran] 4 mg PO Q6H PRN #5 tab 08/22/17 - Allergies Allergies/Adverse Reactions: Allergies Allergy/AdvReac Type Severity Reaction Status Date / Time No Known Allergies Allergy Verified 08/22/17 17:09 Review of Systems ROS Statement: Except As Marked, All Systems Reviewed And Found Negative (As per HPI,otherwise negative) Physical Exam - Reviewed Nursing Documentation Reviewed: Yes Vital Signs Reviewed: Yes - Physical Exam Appears: Positive for: Non-toxic, No Acute Distress Head Exam: Positive for: ATRAUMATIC, NORMAL INSPECTION, NORMOCEPHALIC Skin: Positive for: Normal Color, Warm, Dry Eye Exam: Positive for: EOMI, Normal appearance, PERRL ENT: Positive for: Normal ENT Inspection Neck: Positive for: Normal, Painless ROM, Supple Cardiovascular/Chest: Positive for: Regular Rate, Rhythm. Negative for: Murmur Respiratory: Positive for: Normal Breath Sounds. Negative for: Accessory Muscle Use, Respiratory Distress Gastrointestinal/Abdominal: Positive for: Tenderness (Slight mild epigastric tenderness). Negative for: Guarding, Rebound Back: Positive for: Normal Inspection Extremity: Positive for: Normal ROM Neurologic/Psych: Positive for: Alert, Oriented - Laboratory Results Result Diagrams: 08/22/17 18:15 08/22/17 18:15 - ECG O2 Sat by Pulse Oximetry: 98 (RA) Pulse Ox Interpretation: Normal Medical Decision Making Medical Decision Making: Time: 17:54 Initial Impression: abdominal pain rule out Gastroenteritis Plan: CMP Lipase CBC w/ differential Sodium chloride 1L IV Pepcid 20mg IVP Ondansetron 4mg IV Reevaluation --While blood cell count is 11.5 Time: 22:20 Abdomen/Pelvis CT FINDINGS: Limitations: lack of intravenous contrast Lung bases: No acute findings Heart: Borderline cardiomegaly ABDOMEN: Liver: unremarkable Gallbladder and bile ducts: No calcified stones, No ductal dilation Pancreas: Unremarkable. No ductal dilation spleen: No splenomegaly Adrenals: no mass Kidneys and Ureters: No renal calculi. No hydronephrosis Stomach and bowel: segmental areas of mild mural thickening vs underdistension of large bowel. No associated inflammatory standing. No obstruction. PELVIS: Appendix: No findings to suggest acute appendicitis Bladder: unremarkable. No stones. Reproductive: Enlarged uterus with fundal mass, likely fibroid. Tubal ligation. Probable left ovarian follicle. mild asymmetric prominence left vuvla, clinical correlation needed. ABDOMEN AND PELVIS: Intraperitoneal space: No significant fluid collection. No free air. Bones/joints: No acute fracture Soft tissues: Tiny umbilical hernia containing fat. Vasculature: Unremarkable. No aneurysm. Lymph nodes: no pathologically enlarged lymph nodes IMPRESSION: 1. Mild colitis versus underdistension. Clinical correlation is needed. 2. Incidental/non-acute findings and described above. pt aware of results. tolerated po, feels better, stable for dc. Scribe Attestation: Documented by Chandler Burger acting as a scribe for Bhakti Juárez MD. Scribe Attestation: All medical record entries made by the Scribe were at my direction and personally dictated by me. I have reviewed the chart and agree that the record accurately reflects my personal performance of the history, physical exam, medical decision making, and the department course for this patient. I have also personally directed, reviewed, and agree with the discharge instructions and disposition. Disposition - Clinical Impression Clinical Impression: Gastroenteritis - Patient ED Disposition Is Patient to be Admitted: No Counseled Patient/Family Regarding: Studies Performed, Diagnosis, Need For Followup - Disposition Referrals: [facility] [Outside] [facility] [Outside] Disposition: Routine/Home Disposition Time: 22:00 Condition: IMPROVED Additional Instructions: follow up with your primary doctor in 1-2 days return to the ED with any worsening or concerning symptoms Prescriptions: Ondansetron [Zofran] 4 mg PO Q6H PRN #5 tab PRN Reason: Nausea/Vomiting Instructions: Viral Gastroenteritis, Adult (DC) Forms: [facility] (Djiboutian) Print Language: HEBREW
[2017-08-22 18:40] LABS: BASO % 0.2 % (0.0-2.0); EOS % 0.1 % (0.0-4.0); HEMOGLOBIN 13.3 g/dL (12.0-16.0); LYMPH # 0.9 K/uL (1.0-4.3); MEAN CELL VOLUME 90.4 fl (81.0-99.0); MEAN CORPUSCULAR HEMOGLOBIN 30.2 pg (27.0-31.0); MEAN CORPUSCULAR HGB CONC 33.4 g/dL (33.0-37.0); MONO # 0.3 K/uL (0.0-0.8); MONO % 2.4 % (0.0-10.0); NEUT # 10.3 K/uL (1.8-7.0); NEUT % 89.3 % (50.0-75.0); PLATELET COUNT 312 K/uL (130-400); RBC 4.42 Mil/uL (3.80-5.20); RED CELL DISTRIBUTION WIDTH 13.5 % (11.5-14.5); WHITE BLOOD COUNT 11.5 K/uL (4.8-10.8)
[2017-08-22 18:45] LABS: BLOOD UREA NITROGEN 10 mg/dl (7-17); GFR AFRICAN-AMERICAN > 60; GFR NON-AFRICAN AMERICAN > 60
[2017-08-22 18:46] LABS: ALB/GLOB RATIO 1.1 (1.0-2.1); ALBUMIN 4.9 g/dL (3.5-5.0); ALT/SGPT 36 U/L (9-52); AST/SGOT 51 U/L (14-36); CALCIUM 9.8 mg/dL (8.4-10.2); LIPASE 89 U/L (23-300)
[2017-08-22 20:56] LABS: BANDS 5 % (0-2); LYMPHOCYTE 9 % (20-50); MONOCYTE 4 % (0-10); NEUTROPHIL 82 % (42-75); PLATELET ESTIMATE NORMAL (NORMAL); TOTAL CELLS COUNTED 100
[2017-08-22 20:57] LABS: TOXIC GRANULATION PRESENT
--- NOTE | 2017-08-22 22:21 | CT ---
EXAM: CT Abdomen and Pelvis Without Intravenous Contrast CLINICAL HISTORY: 51 years old, female; Pain and signs and symptoms; Nausea and vomiting and other: Diarrhea; Abdominal pain; Prior surgery; Surgery date: 6+ months; Surgery type: tubal ligation; Patient HX: HX of gastritis; Additional info: Abd pain TECHNIQUE: Axial computed tomography images of the abdomen and pelvis without intravenous contrast. All CT scans at this facility use one or more dose reduction techniques, viz.: automated exposure control; ma/kV adjustment per patient size (including targeted exams where dose is matched to indication; i.e. head); or iterative reconstruction technique. Coronal and sagittal reformatted images were created and reviewed. COMPARISON: CT - ABD PELVIS PO IV CONTRAST 2016-03-27 23:44 FINDINGS: Limitations: Lack of intravenous contrast. Lung bases: No acute findings. Heart: Borderline cardiomegaly. ABDOMEN: Liver: Unremarkable. Gallbladder and bile ducts: No calcified stones. No ductal dilation. Pancreas: Unremarkable. No ductal dilation. Spleen: No splenomegaly. Adrenals: No mass. Kidneys and ureters: No renal calculi. No hydronephrosis. Stomach and bowel: Segmental areas of mild mural thickening vs underdistention of large bowel. No associated inflammatory stranding. No obstruction. PELVIS: Appendix: No findings to suggest acute appendicitis. Bladder: Unremarkable. No stones. Reproductive: Enlarged uterus with fundal mass, likely fibroid. Tubal ligation. Probable left ovarian follicle. Mild asymmetric prominence left vulva, clinical correlation is needed. ABDOMEN and PELVIS: Intraperitoneal space: No significant fluid collection. No free air. Bones/joints: No acute fracture. Soft tissues: Tiny umbilical hernia containing fat. Vasculature: Unremarkable. No aneurysm. Lymph nodes: No pathologically enlarged lymph nodes. IMPRESSION: 1. Mild colitis versus underdistention. Clinical correlation is needed. 2. Incidental/non-acute findings are described above.
[2017-08-23 02:13] VITALS: BP 134/89; PULSE 82; RESP 18; TEMP 98.3; O2SAT 100
== END 2017-08-23 02:15 | disposition home or self-care (01) ==
LOC: H.ER 16:46
DX: K52.9 Noninfective gastroenteritis and colitis, unspecified (principal)
CPT/HCPCS: 74176; 80053; 81025; 83690; 85025; 96374; 99284; J2405; J7040

== ENCOUNTER 2017-09-20 15:06 | Emergency (ER) | payer SELFPAY ==
[2017-09-20 15:06] VITALS: BMI 32.9
[2017-09-20 15:27] VITALS: BP 169/90; PULSE 95; RESP 20; TEMP 98.1; O2SAT 99
[2017-09-20] MEDS ORDERED: PROPARACAINE/FLUORESCEIN SOD 100 DROP/5 ML BOTTLE OU STA (15:33)
[2017-09-20] MEDS ORDERED: PROPARACAINE/FLUORESCEIN SOD 100 DROP/5 ML BOTTLE ONE (15:36)
--- NOTE | 2017-09-20 15:40 | ED PDOC ---
HPI: Eye Injury/Pain Time Seen by Provider: 09/20/17 15:30 Chief Complaint (Nursing): Eye Problem Chief Complaint (Provider): Eye Problem History Per: Patient History/Exam Limitations: no limitations Onset/Duration Of Symptoms: Days (x1 month) Current Symptoms Are (Timing): Still Present Additional Complaint(s): 51 year old female presents to the emergency department complaining of bilateral itchiness and watering to her eyes, onset one month ago. She denies wearing glasses or contacts, and any allergies, cough, congestion, or nasal discharge. Currently, she notes burning in her left eye. PMD: none provided Past Medical History Reviewed: Historical Data, Nursing Documentation, Vital Signs Vital Signs: Last Vital Signs Temp 98.1 F 09/20/17 15:25 Pulse 95 H 09/20/17 15:25 Resp 20 09/20/17 15:25 BP 169/90 H 09/20/17 15:25 Pulse Ox 99 09/20/17 15:25 - Medical History PMH: Gastritis Denies: Hypercholesterolemia, Chronic Kidney Disease - Surgical History Surgical History: - Family History Family History: States: Unknown Family Hx - Home Medications Home Medications: Ambulatory Orders Medication Instructions Recorded Famotidine [Pepcid] 20 mg PO BID #28 tab 02/01/17 Famotidine [Pepcid] 20 mg PO DAILY #30 tab 02/09/17 Ondansetron [Zofran Odt] 4 mg PO ASDIR PRN #15 odt 02/09/17 Cyclobenzaprine [Cyclobenzaprine 10 mg PO TID #10 tab 02/12/17 HCl] Naproxen [Naprosyn] 500 mg PO Q12H #20 tab 02/12/17 Albuterol HFA [Ventolin HFA 90 1 - 2 puff IH Q6 PRN #1 inhaler 02/22/17 mcg/actuation (8 g)] Benzonatate [Tessalon Perle] 100 mg PO TID PRN #15 capsule 02/22/17 Naproxen [Naprosyn] 500 mg PO BID PRN #15 tablet 06/26/17 Ondansetron [Zofran] 4 mg PO Q6H PRN #5 tab 08/22/17 Olopatadine 0.1% Opht [Patanol 5 1 drop BOTHEYES BID #1 bottle 09/20/17 Ml] - Allergies Allergies/Adverse Reactions: Allergies Allergy/AdvReac Type Severity Reaction Status Date / Time No Known Allergies Allergy Verified 09/20/17 15:25 Review of Systems ROS Statement: Except As Marked, All Systems Reviewed And Found Negative Eyes: Positive for: Other (bilateral itchiness and watering to eyes; burning in left eye) ENT: Negative for: Nose Congestion Respiratory: Negative for: Cough Physical Exam - Reviewed Nursing Documentation Reviewed: Yes Vital Signs Reviewed: Yes - Physical Exam Appears: Positive for: Non-toxic, No Acute Distress Head Exam: Positive for: ATRAUMATIC, NORMOCEPHALIC Skin: Positive for: Normal Color, Warm, Dry Eye Exam: Positive for: Conjunctival injection (minimal bilaterally), Other ( bilateral irritation noted to bilateral lower eyelids) ENT: Positive for: Normal ENT Inspection Neck: Positive for: Normal, Painless ROM, Supple Cardiovascular/Chest: Positive for: Regular Rate, Rhythm. Negative for: Murmur Respiratory: Positive for: Normal Breath Sounds. Negative for: Accessory Muscle Use, Respiratory Distress Neurologic/Psych: Positive for: Alert, Oriented - ECG O2 Sat by Pulse Oximetry: 99 (RA) Pulse Ox Interpretation: Normal Medical Decision Making Medical Decision Making: Time: 15:33 Initial Plan: --Flucaine eye drops 1 drop OU --Eye exam 15:40 Eye Exam 20/20 left eye 20/20 right eye 20/15 both eyes 15:50 No fluorescein uptake. Scribe Attestation: Documented by Amanda Chun, acting as a scribe for Poonam Burger PA-C Provider Scribe Attestation: All medical record entries made by the Scribe were at my direction and personally dictated by me. I have reviewed the chart and agree that the record accurately reflects my personal performance of the history, physical exam, medical decision making, and the department course for this patient. I have also personally directed, reviewed, and agree with the discharge instructions and disposition. Disposition - Clinical Impression Clinical Impression: Allergic conjunctivitis - Patient ED Disposition Is Patient to be Admitted: No - Disposition Referrals: Rey Mock MD [Staff Provider] - [facility] [Outside] Disposition Time: 15:54 Condition: FAIR Prescriptions: Olopatadine 0.1% Opht [Patanol 5 Ml] 1 drop BOTHEYES BID #1 bottle Instructions: Conjunctivitis (Noninfectious Pinkeye) (DC) Forms: [facility] (Chinese) Print Language: CHINESE
== END 2017-09-20 16:25 | disposition home or self-care (01) ==
LOC: H.ER 15:06
DX: H10.10 Acute atopic conjunctivitis, unspecified eye (principal)

== ENCOUNTER 2018-01-15 10:07 | Emergency (ER) | payer SELFPAY ==
[2018-01-15 10:08] VITALS: BMI 32.9
[2018-01-15 10:20] VITALS: BP 154/87; PULSE 90; RESP 16; TEMP 97.7; O2SAT 100
--- NOTE | 2018-01-15 11:17 | RAD ---
Date of service: 01/15/2018 HISTORY: Foreign body sensation COMPARISON: None FINDINGS: Anterior cervical spondylosis C5-C6 with trace intervening disc space narrowing here. No radiopaque foreign body noted. No osseous additional pathology seen. Incidentally noted are small bilateral C7 cervical ribs developmental variants IMPRESSION: No radiopaque foreign body. No gross airway compromise seen. Anterior cervical spondylosis
--- NOTE | 2018-01-15 11:47 | ED PDOC ---
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 Patient states she was eating salad with howard lettuce and felt a piece of lettuce stuck in her right side of the throat area with continuos foreign body sensation. She states the sensation become worse when eating or drinking. Denies fever, throat swelling or pain. PMD: Non H Provider Past Medical History Reviewed: Historical Data, Nursing Documentation, Vital Signs Vital Signs: Last Vital Signs Temp 97.7 F 01/15/18 10:19 Pulse 90 01/15/18 10:19 Resp 16 01/15/18 10:19 BP 154/87 H 01/15/18 10:19 Pulse Ox 100 01/15/18 12:15 - Medical History PMH: Gastritis Denies: Hypercholesterolemia, Chronic Kidney Disease - Surgical History Surgical History: - Family History Family History: States: Unknown Family Hx - Social History Current smoker - smoking cessation education provided: No Alcohol: Social Drugs: Denies - Home Medications Home Medications: Ambulatory Orders Medication Instructions Recorded Famotidine [Pepcid] 20 mg PO BID #28 tab 02/01/17 Famotidine [Pepcid] 20 mg PO DAILY #30 tab 02/09/17 Ondansetron [Zofran Odt] 4 mg PO ASDIR PRN #15 odt 02/09/17 Cyclobenzaprine [Cyclobenzaprine 10 mg PO TID #10 tab 02/12/17 HCl] Naproxen [Naprosyn] 500 mg PO Q12H #20 tab 02/12/17 Albuterol HFA [Ventolin HFA 90 1 - 2 puff IH Q6 PRN #1 inhaler 02/22/17 mcg/actuation (8 g)] Benzonatate [Tessalon Perle] 100 mg PO TID PRN #15 capsule 02/22/17 Naproxen [Naprosyn] 500 mg PO BID PRN #15 tablet 02/28/18 Ondansetron [Zofran] 4 mg PO Q6H PRN #5 tab 08/22/17 Olopatadine 0.1% Opht [Patanol 5 1 drop BOTHEYES BID #1 bottle 09/20/17 Ml] - Allergies Allergies/Adverse Reactions: Allergies Allergy/AdvReac Type Severity Reaction Status Date / Time No Known Allergies Allergy Verified 09/20/17 15:25 Review of Systems ROS Statement: Except As Marked, All Systems Reviewed And Found Negative Constitutional: Negative for: Fever ENT: Positive for: Other (foreign body sensation on right lower neck area). Negative for: Throat Pain, Throat Swelling Psych: Negative for: Suicidal ideation (homicidal ideation ) Physical Exam - Reviewed Nursing Documentation Reviewed: Yes Vital Signs Reviewed: Yes - Physical Exam Appears: Positive for: Non-toxic, No Acute Distress Head Exam: Positive for: ATRAUMATIC, NORMAL INSPECTION, NORMOCEPHALIC Skin: Positive for: Normal Color, Warm, Dry ENT: Positive for: Normal ENT Inspection (able to swallow saliva). Negative for : Pharyngeal Erythema, Tonsillar Exudate, Tonsillar Swelling Neck: Positive for: Normal (no mass or thyromegaly), Painless ROM, Supple. Negative for: Decreased ROM Cardiovascular/Chest: Positive for: Regular Rate, Rhythm. Negative for: Murmur Respiratory: Positive for: Normal Breath Sounds. Negative for: Decreased Breath Sounds, Wheezing, Respiratory Distress Neurologic/Psych: Positive for: Alert, Oriented (x3). Negative for: Motor/ Sensory Deficits - ECG O2 Sat by Pulse Oximetry: 100 (RA) Pulse Ox Interpretation: Normal Medical Decision Making Medical Decision Making: Time: 1058 --Lidocain 2% Viscous 15ml PO --Neck Soft Tissue [RAD] --Reevaluation Time: 1115 Date of service: 01/15/2018 HISTORY: Foreign body sensation COMPARISON: None FINDINGS: Anterior cervical spondylosis C5-C6 with trace intervening disc space narrowing here. No radiopaque foreign body noted. No osseous additional pathology seen. Incidentally noted are small bilateral C7 cervical ribs developmental variants IMPRESSION: No radiopaque foreign body. No gross airway compromise seen. Anterior cervical spondylosis On reevaluation, patient shows moderate improvement in symptoms and not in distress. Results were discussed with patient using downstairs maid, [id number]. Clinical Impression: Globus syndrome Upon provider evaluation patient is medically stable, and requires no further treatment in the ED at this time. Patient will be discharged. Counseling was provided and all questions were answered regarding diagnosis and need for follow up with ENT specialist or [facility] for further evaluation. There is agreement to discharge plan. Return if symptoms persist or worsen. Scribe Attestation: Documented by Erica Louis, acting as a scribe for Max Waldron PA-C. Provider Scribe Attestation: All medical record entries made by the Scribe were at my direction and personally dictated by me. I have reviewed the chart and agree that the record accurately reflects my personal performance of the history, physical exam, medical decision making, and the department course for this patient. I have also personally directed, reviewed, and agree with the discharge instructions and disposition. Disposition - Clinical Impression Clinical Impression: Globus syndrome - Patient ED Disposition Is Patient to be Admitted: No - Disposition Referrals: [facility] [Outside] [facility] [Outside] Christian Rivera MD [Staff Provider] - Disposition: Routine/Home Disposition Time: 11:46 Condition: IMPROVED Additional Instructions: FOLLOW UP WITH ENT FOR FURTHER EVALUATION LATOYA FORTE, thank you for letting us take care of you today. Your provider was Pernell Barahona III, DO and you were treated for DIFFICULTLY SWALLOWING. The emergency medical care you received today was directed at your acute symptoms. If you were prescribed any medication, please fill it and take as directed. It may take several days for your symptoms to resolve. Return to the Emergency Department if your symptoms worsen, do not improve, or if you have any other problems. Please contact your doctor or call one of the physicians/clinics you have been referred to that are listed on the Patient Visit Information form that is included in your discharge packet. Bring any paperwork you were given at discharge with you along with any medications you are taking to your follow up visit. Our treatment cannot replace ongoing medical care by a primary care provider outside of the emergency department. Thank you for allowing the [employer] team to be part of your care today. If you had an X-Ray or CT scan: A Radiologist will review the ED reading if any change in treatment is needed we will contact you. If you had a blood, urine, or wound culture: It will take several days for the results, if any change in treatment is needed we will contact you. If you had an STI test: It will take 48 hours for the results. Please call after 1 week if you have not heard back. Forms: [employer] (Djiboutian) Print Language: FAROESE
== END 2018-01-15 11:57 | disposition home or self-care (01) ==
LOC: H.ER 10:07
DX: F45.8 Other somatoform disorders (principal)

== ENCOUNTER 2018-04-16 08:45 | Emergency (ER) | payer OTHER ==
[2018-04-16 08:45] VITALS: BMI 32.9
[2018-04-16 08:50] VITALS: RESP 18
--- NOTE | 2018-04-16 09:05 | ED PDOC ---
HPI: CCC, URI, Sore Throat Time Seen by Provider: 04/16/18 08:57 Chief Complaint (Nursing): Cough, Cold, Congestion History Per: Patient Onset/Duration Of Symptoms: Days (7) Current Symptoms Are (Timing): Still Present Location Of Pain: Diffuse Myalgias Sick Contacts (Context): None Associated Symptoms: Fever, Cough, Sputum Severity: Mild Additional Complaint(s): Cough productive green sputum x 1 week.Assoc with fever and body aches. Denies SOB. No NVD Past Medical History Vital Signs: Last Vital Signs Temp 97.9 F 04/16/18 08:49 Pulse 90 04/16/18 08:49 Resp 18 04/16/18 08:49 BP 170/89 H 04/16/18 08:49 Pulse Ox 97 04/16/18 08:49 - Medical History PMH: Gastritis Denies: Hypercholesterolemia, Chronic Kidney Disease - Surgical History Surgical History: - Family History Family History: States: Unknown Family Hx - Home Medications Home Medications: Ambulatory Orders Medication Instructions Recorded Famotidine [Pepcid] 20 mg PO BID #28 tab 02/01/17 Famotidine [Pepcid] 20 mg PO DAILY #30 tab 02/09/17 Ondansetron [Zofran Odt] 4 mg PO ASDIR PRN #15 odt 02/09/17 Cyclobenzaprine [Cyclobenzaprine 10 mg PO TID #10 tab 02/12/17 HCl] Naproxen [Naprosyn] 500 mg PO Q12H #20 tab 02/12/17 Albuterol HFA [Ventolin HFA 90 1 - 2 puff IH Q6 PRN #1 inhaler 02/22/17 mcg/actuation (8 g)] Benzonatate [Tessalon Perle] 100 mg PO TID PRN #15 capsule 02/22/17 Naproxen [Naprosyn] 500 mg PO BID PRN #15 tablet 06/26/17 Ondansetron [Zofran] 4 mg PO Q6H PRN #5 tab 08/22/17 Olopatadine 0.1% Opht [Patanol 5 1 drop BOTHEYES BID #1 bottle 09/20/17 Ml] Azithromycin [Zithromax] 250 mg PO DAILY #6 tab 04/16/18 Benzonatate [Tessalon Perle] 100 mg PO Q8 #10 capsule 04/16/18 - Allergies Allergies/Adverse Reactions: Allergies Allergy/AdvReac Type Severity Reaction Status Date / Time No Known Allergies Allergy Verified 09/20/17 15:25 Review of Systems ROS Statement: Except As Marked, All Systems Reviewed And Found Negative Constitutional: Positive for: Fever Respiratory: Positive for: Cough Physical Exam - Reviewed Nursing Documentation Reviewed: Yes Vital Signs Reviewed: Yes - Physical Exam Appears: Positive for: Non-toxic, No Acute Distress Head Exam: Positive for: ATRAUMATIC, NORMAL INSPECTION, NORMOCEPHALIC Skin: Positive for: Normal Color, Warm, DRY Eye Exam: Positive for: EOMI, Normal appearance, PERRL ENT: Positive for: Normal ENT Inspection Neck: Positive for: Normal, Painless ROM Cardiovascular/Chest: Positive for: Regular Rate, Rhythm Respiratory: Positive for: CNT, Normal Breath Sounds Gastrointestinal/Abdominal: Positive for: Normal Exam, Soft Back: Positive for: Normal Inspection Extremity: Positive for: Normal ROM Neurologic/Psych: Positive for: Alert, Oriented - ECG O2 Sat by Pulse Oximetry: 97 Disposition - Clinical Impression Clinical Impression: Bronchitis - Patient ED Disposition Is Patient to be Admitted: No Counseled Patient/Family Regarding: Studies Performed, Diagnosis, Need For Followup, Rx Given - Disposition Referrals: [facility] [Outside] Disposition: Routine/Home Disposition Time: 09:55 Condition: FAIR Prescriptions: Azithromycin [Zithromax] 250 mg PO DAILY #6 tab Benzonatate [Tessalon Perle] 100 mg PO Q8 #10 capsule Instructions: Acute Bronchitis Forms: [employer] (Emirati)
--- NOTE | 2018-04-16 09:42 | RAD ---
Date of service: 04/16/2018 HISTORY: cough COMPARISON: 02/22/2017 TECHNIQUE: Chest PA and lateral FINDINGS: LUNGS: No active pulmonary disease. PLEURA: No significant pleural effusion identified. No pneumothorax apparent. CARDIOVASCULAR: There is absence of aortic atherosclerotic calcification on x-ray. Normal cardiac size. No pulmonary vascular congestion. OSSEOUS STRUCTURES: No significant abnormalities. VISUALIZED UPPER ABDOMEN: Normal. OTHER FINDINGS: None. IMPRESSION: No active disease. No interval pathology noted.
[2018-04-16 10:56] VITALS: BP 154/90; PULSE 80; TEMP 97.5; O2SAT 100
== END 2018-04-16 10:25 | disposition home or self-care (01) ==
LOC: H.ER 08:45
DX: J40 Bronchitis, not specified as acute or chronic (principal)

== ENCOUNTER 2018-04-24 13:51 | Observation (INO) | payer MEDICAID, OTHER ==
[2018-04-24 13:51] VITALS: BMI 32.9
[2018-04-24] MEDS ORDERED: Sodium Chloride 0.9% 1,000 ML IV STA (14:13)
--- NOTE | 2018-04-24 14:18 | ED PDOC ---
HPI: Abdomen Time Seen by Provider: 04/24/18 14:00 Chief Complaint (Nursing): GI Problem History Per: Patient Onset/Duration Of Symptoms: Days (1) Current Symptoms Are (Timing): Still Present Severity: Moderate Location Of Pain/Discomfort: Diffuse Quality Of Discomfort: Unable To Describe Associated Symptoms: Nausea, Vomiting, Diarrhea. denies: Fever Exacerbating Factors: None Alleviating Factors: None Additional Complaint(s): Diffuse abd pain assoc with vomiting and diarrhea since thjis AM. Denies fever or bloody stools. Denies urinary sxs Past Medical History Vital Signs: Last Vital Signs Temp 98.1 F 04/24/18 13:55 Pulse 108 H 04/24/18 13:55 Resp 16 04/24/18 13:55 BP 166/95 H 04/24/18 13:55 Pulse Ox 98 04/24/18 13:55 - Medical History PMH: Gastritis Denies: Hypercholesterolemia, Chronic Kidney Disease - Surgical History Surgical History: - Family History Family History: States: Unknown Family Hx - Home Medications Home Medications: Ambulatory Orders Medication Instructions Recorded Famotidine [Pepcid] 20 mg PO BID #28 tab 02/01/17 Famotidine [Pepcid] 20 mg PO DAILY #30 tab 02/09/17 Ondansetron [Zofran Odt] 4 mg PO ASDIR PRN #15 odt 02/09/17 Cyclobenzaprine [Cyclobenzaprine 10 mg PO TID #10 tab 02/12/17 HCl] Naproxen [Naprosyn] 500 mg PO Q12H #20 tab 02/12/17 Albuterol HFA [Ventolin HFA 90 1 - 2 puff IH Q6 PRN #1 inhaler 02/22/17 mcg/actuation (8 g)] Benzonatate [Tessalon Perle] 100 mg PO TID PRN #15 capsule 02/22/17 Naproxen [Naprosyn] 500 mg PO BID PRN #15 tablet 06/26/17 Ondansetron [Zofran] 4 mg PO Q6H PRN #5 tab 08/22/17 Olopatadine 0.1% Opht [Patanol 5 1 drop BOTHEYES BID #1 bottle 09/20/17 Ml] Azithromycin [Zithromax] 250 mg PO DAILY #6 tab 04/16/18 Benzonatate [Tessalon Perle] 100 mg PO Q8 #10 capsule 04/16/18 - Allergies Allergies/Adverse Reactions: Allergies Allergy/AdvReac Type Severity Reaction Status Date / Time No Known Allergies Allergy Verified 04/24/18 13:54 Review of Systems ROS Statement: Except As Marked, All Systems Reviewed And Found Negative Constitutional: Negative for: Fever Gastrointestinal: Positive for: Vomiting, Abdominal Pain, Diarrhea Physical Exam - Reviewed Nursing Documentation Reviewed: Yes Vital Signs Reviewed: Yes - Physical Exam Appears: Positive for: Non-toxic, No Acute Distress Head Exam: Positive for: ATRAUMATIC, NORMAL INSPECTION, NORMOCEPHALIC Skin: Positive for: Normal Color, Warm, DRY Eye Exam: Positive for: EOMI, Normal appearance, PERRL ENT: Positive for: Normal ENT Inspection Neck: Positive for: Normal, Painless ROM Cardiovascular/Chest: Positive for: Regular Rate, Rhythm Respiratory: Positive for: CNT, Normal Breath Sounds Gastrointestinal/Abdominal: Positive for: Soft, Tenderness (Difuse) Back: Positive for: Normal Inspection Extremity: Positive for: Normal ROM Neurologic/Psych: Positive for: Alert, Oriented - ECG O2 Sat by Pulse Oximetry: 98 Disposition - Clinical Impression Clinical Impression: Gastroenteritis - Patient ED Disposition Is Patient to be Admitted: Transfer of Care - Disposition Disposition: Transfer of Care Disposition Time: 15:00 Condition: FAIR Forms: [employer] (Greek) Patient Signed Over To: Lenard Doss
[2018-04-24 14:52] LABS: BASO % 0.2 % (0.0-2.0); EOS # 0.1 K/uL (0.0-0.7); EOS % 0.4 % (0.0-4.0); LYMPH # 0.6 K/uL (1.0-4.3); LYMPH % 4.1 % (20.0-40.0); MEAN CELL VOLUME 89.5 fl (81.0-99.0); MEAN CORPUSCULAR HEMOGLOBIN 29.6 pg (27.0-31.0); MEAN CORPUSCULAR HGB CONC 33.1 g/dL (33.0-37.0); MEAN PLATELET VOLUME 7.9 fl (7.2-11.7); MONO # 0.4 K/uL (0.0-0.8); MONO % 2.9 % (0.0-10.0); NEUT # 13.3 K/uL (1.8-7.0); NEUT % 92.4 % (50.0-75.0); NRBC % 0.1 % (0.0-0.0); PLATELET COUNT 284 K/uL (130-400); RBC 4.38 Mil/uL (3.80-5.20); RED CELL DISTRIBUTION WIDTH 13.3 % (11.5-14.5); WHITE BLOOD COUNT 14.3 K/uL (4.8-10.8)
[2018-04-24 14:54] LABS: ALB/GLOB RATIO 1.1 (1.0-2.1); ALBUMIN 4.7 g/dL (3.5-5.0); ALT/SGPT 28 U/L (9-52); AST/SGOT 32 U/L (14-36); BLOOD UREA NITROGEN 14 mg/dl (7-17); CALCIUM 9.1 mg/dL (8.4-10.2); GFR NON-AFRICAN AMERICAN > 60
[2018-04-24] MEDS ORDERED: Iohexol 300 100 ML IJ ONE (15:52)
[2018-04-24] MEDS ORDERED: Sodium Chloride 0.9% 50 ML IV ONE (15:53)
--- NOTE | 2018-04-24 16:35 | CT ---
Date of service: 04/24/2018 PROCEDURE: CT Abdomen and Pelvis with contrast HISTORY: Abdominal pain COMPARISON: 08/22/2017. TECHNIQUE: CT scan of the abdomen and pelvis was performed after administration of intravenous contrast. Oral contrast was not administered. Coronal and sagittal reformatted images were obtained. Contrast dose: 95 mL Omnipaque 300 Radiation dose: Total exam DLP = 931.48 mGy-cm. This CT exam was performed using one or more of the following dose reduction techniques: Automated exposure control, adjustment of the mA and/or kV according to patient size, and/or use of iterative reconstruction technique. FINDINGS: LOWER THORAX: The visualized lungs are clear. LIVER: Fatty liver. Normal in size with homogeneous enhancement. No gross lesion or ductal dilatation. GALLBLADDER AND BILE DUCTS: Well distended. No calcified gallstones, wall thickening or pericholecystic fluid. PANCREAS: Normal in size with homogeneous enhancement. No gross lesion or ductal dilatation. SPLEEN: Mild splenomegaly. Normal homogeneous enhancement. ADRENALS: No discrete nodule. KIDNEYS AND URETERS: Normal in size with homogeneous enhancement. No hydronephrosis. No solid mass. VASCULATURE: No aortic aneurysm. BOWEL: Evaluation of the bowel is limited in the absence of oral contrast. There are fluid-filled mildly dilated small bowel loops. There is diffuse fatty infiltration in the decompressed colonic wall and in the terminal ileum. APPENDIX: Normal appendix. PERITONEUM: No free fluid. No free air. LYMPH NODES: No enlarged lymph nodes. BLADDER: Well distended and normal in appearance. REPRODUCTIVE: The uterus is enlarged. There is a large intramural anterior fundal fibroid. There is a stable 1.9 cm cyst in the left ovary. BONES: No acute fracture. Within normal limits for the patient's age. OTHER FINDINGS: None. IMPRESSION: Fluid-filled mildly dilated small bowel loops may represent nonspecific infectious/inflammatory enteritis. Diffuse fatty infiltration in the colonic wall likely related to chronic colitis. Large intramural anterior fundal fibroid.
[2018-04-24 16:57] LABS: BANDS 1 % (0-2); LYMPHOCYTE 8 % (20-50); MONOCYTE 1 % (0-10); NEUTROPHIL 90 % (42-75); TOTAL CELLS COUNTED 100
[2018-04-24 16:58] LABS: PLATELET ESTIMATE NORMAL (NORMAL)
--- NOTE | 2018-04-24 18:33 | ED PDOC ---
- Laboratory Results Result Diagrams: 04/24/18 14:35 04/24/18 14:35 Interpretation Of Abn Labs: 14.3 wbc - ECG O2 Sat by Pulse Oximetry: 98 Pulse Ox Interpretation: Normal - Progress ED Course And Treament: 1500: Took over care from Dr. Baltazar. Fu with labs and imaging. Diffuse abd pain. 1831: Stable. AAOx3. Still pain and nausea. Will give IV tx and antibiotics. Spoke with Dr. Rouse. Will admit. Disposition - Clinical Impression Clinical Impression: Abdominal pain, Colitis - POA Present On Arrival: None - Disposition Disposition: Hospitalized as Observation Patient Disposition Time: 18:00 Condition: FAIR
[2018-04-24] MEDS ORDERED: metroNIDAZOLE 500mg/100ml NS 100 ML IV STA (18:41)
[2018-04-24] MEDS ORDERED: cefTRIAXone (Rocephin) 1 gm Inj IV ONE (18:41)
[2018-04-24] MEDS ORDERED: cefTRIAXone (Rocephin) 1 gm Inj ONE (18:57)
--- NOTE | 2018-04-24 19:04 | CP.PCM.HP ---
<Ashish Sahu - Last Filed: 04/24/18 20:34> History of Present Illness - History of Present Illness History of Present Illness: 52 y/o female patient presents to the ED c/o of generalized abdominal pain for 4 days associated with 15 episodes of nbnb vomit since then and also states multiples episodes of watery diarrhea, also nausea. She feel weak. She denies fever, LU/chills, chest pain, shortness of breath, palpitations, dizziness, melena, hematemesis, no recent travels, sick contacts or new foods. Denies urinary sx. She had a previous admission in 2016 for colitis. PMD: [facility] PMH: gastritis Meds: advil PRN Allergies: nkda FMH: mom with HTN PSH: R shoulder arthroscopy, c section and BTL in 1994 SH: denies etoh, tobacco, drugs; lives with spouse and son. Present on Admission - Present on Admission Any Indicators Present on Admission: No Review of Systems - Review of Systems All systems: reviewed and no additional remarkable complaints except (HPI) Past Patient History - Infectious Disease Hx of Infectious Diseases: None - Past Medical History & Family History Past Medical History?: Yes - Past Social History Smoking Status: Never Smoked - CARDIAC Hx Hypercholesterolemia: No - PULMONARY Hx Respiratory Disorders: No - NEUROLOGICAL Hx Neurological Disorder: No - HEENT Hx HEENT Problems: No - RENAL Hx Chronic Kidney Disease: No - ENDOCRINE/METABOLIC Hx Endocrine Disorders: No - HEMATOLOGICAL/ONCOLOGICAL Hx Blood Disorders: No - INTEGUMENTARY Hx Dermatological Problems: No - MUSCULOSKELETAL/RHEUMATOLOGICAL Hx Musculoskeletal Disorders: Yes Other/Comment: Sciatica - GASTROINTESTINAL Hx Gastritis: Yes - GENITOURINARY/GYNECOLOGICAL Hx Genitourinary Disorders: No - PSYCHIATRIC Hx Psychophysiologic Disorder: No Hx Substance Use: No - SURGICAL HISTORY Hx Surgeries: Yes Hx Orthopedic Surgery: Yes (right shoulder surgery) Hx Tubal Ligation: Yes - ANESTHESIA Hx Anesthesia: Yes Hx Anesthesia Reactions: No Meds Allergies/Adverse Reactions: Allergies Allergy/AdvReac Type Severity Reaction Status Date / Time No Known Allergies Allergy Verified 04/24/18 13:54 Physical Exam - Constitutional Appears: In Acute Distress (due to abdominal pain) - Head Exam Head Exam: NORMAL INSPECTION - Eye Exam Eye Exam: EOMI, PERRL - Respiratory Exam Respiratory Exam: Clear to Auscultation Bilateral, NORMAL BREATHING PATTERN - Cardiovascular Exam Cardiovascular Exam: REGULAR RHYTHM, +S1, +S2. absent: Tachycardia - GI/Abdominal Exam GI & Abdominal Exam: Normal Bowel Sounds, Soft, Tenderness (diffuse). absent: Distended - Extremities Exam Extremities exam: Negative for: pedal edema - Neurological Exam Neurological exam: Alert, CN II-XII Intact, Oriented x3 - Skin Skin Exam: Dry, Warm Results - Vital Signs Recent Vital Signs: Last Vital Signs Temp 98.7 F 04/24/18 18:20 Pulse 108 H 04/24/18 13:55 Resp 16 04/24/18 13:55 BP 166/95 H 04/24/18 13:55 Pulse Ox 98 04/24/18 18:45 - Labs Result Diagrams: 04/24/18 14:35 04/24/18 14:35 Labs: Laboratory Results - last 24 hr 04/24/18 04/24/18 14:35 14:35 WBC 14.3 H D RBC 4.38 Hgb 13.0 Hct 39.2 MCV 89.5 MCH 29.6 MCHC 33.1 RDW 13.3 Plt Count 284 MPV 7.9 Neut % (Auto) 92.4 H Lymph % (Auto) 4.1 L Martin % (Auto) 2.9 Eos % (Auto) 0.4 Baso % (Auto) 0.2 Neut # (Auto) 13.3 H Lymph # (Auto) 0.6 L Martin # (Auto) 0.4 Eos # (Auto) 0.1 Baso # (Auto) 0.0 Neutrophils % (Manual) 90 H Band Neutrophils % 1 Lymphocytes % (Manual) 8 L Monocytes % (Manual) 1 Platelet Estimate Normal RBC Morphology Normal Sodium 139 Potassium 4.6 Chloride 102 Carbon Dioxide 25 Anion Gap 17 BUN 14 Creatinine 0.6 L Est GFR ( Amer) > 60 Est GFR (Non-Af Amer) > 60 Random Glucose 139 H Calcium 9.1 Total Bilirubin 0.6 AST 32 ALT 28 Alkaline Phosphatase 117 Total Protein 8.8 H Albumin 4.7 Globulin 4.1 H Albumin/Globulin Ratio 1.1 Assessment & Plan - Assessment and Plan (Free Text) Assessment: 52 yo female patient with PMH of gastritis admitted with colitis Plan: Colitis - afebrile, VSS - admit to med surg - Abd CT: Fluid-filled mildly dilated small bowel loops may represent nonspe cific infectious/inflammatory enteritis. Diffuse fatty infiltration in the colonic wall likely related to chronic colitis. - NPO - IV fluids - IV flagyl and ceftriaxone - zofran prn - f/u labs and cx in am Leukocytosis - 2/2 to inflamation - WBC 14.3, lactate 1.3 - afebrile - f/u labs and cx DVT prophylaxis - scd for now Case seen and examined with Dr Rouse <Juan Rouse D - Last Filed: 04/24/18 22:45> Results - Vital Signs Recent Vital Signs: Last Vital Signs Temp 97.9 F 04/24/18 22:27 Pulse 101 H 04/24/18 22:27 Resp 20 04/24/18 22:27 BP 147/84 04/24/18 22:27 Pulse Ox 100 04/24/18 22:27 - Labs Result Diagrams: 04/24/18 14:35 04/24/18 14:35 Labs: Laboratory Results - last 24 hr 04/24/18 04/24/18 04/24/18 14:35 14:35 19:10 WBC 14.3 H D RBC 4.38 Hgb 13.0 Hct 39.2 MCV 89.5 MCH 29.6 MCHC 33.1 RDW 13.3 Plt Count 284 MPV 7.9 Neut % (Auto) 92.4 H Lymph % (Auto) 4.1 L Martin % (Auto) 2.9 Eos % (Auto) 0.4 Baso % (Auto) 0.2 Neut # (Auto) 13.3 H Lymph # (Auto) 0.6 L Martin # (Auto) 0.4 Eos # (Auto) 0.1 Baso # (Auto) 0.0 Neutrophils % (Manual) 90 H Band Neutrophils % 1 Lymphocytes % (Manual) 8 L Monocytes % (Manual) 1 Platelet Estimate Normal RBC Morphology Normal pO2 20 L VBG pH 7.39 VBG pCO2 44 VBG HCO3 24.1 VBG Total CO2 28.0 VBG O2 Sat (Calc) 32.3 L VBG Base Excess 1.2 VBG Potassium 3.9 Glucose 117 H Lactate 1.3 FiO2 21.0 Sodium 139 136.0 Potassium 4.6 Chloride 102 103.0 Carbon Dioxide 25 Anion Gap 17 BUN 14 Creatinine 0.6 L Est GFR ( Amer) > 60 Est GFR (Non-Af Amer) > 60 Random Glucose 139 H Calcium 9.1 Total Bilirubin 0.6 AST 32 ALT 28 Alkaline Phosphatase 117 Total Protein 8.8 H Albumin 4.7 Globulin 4.1 H Albumin/Globulin Ratio 1.1 Lipase 153 Venous Blood Potassium 3.9 Attending/Attestation - Attestation I have personally seen and examined this patient.: Yes I have fully participated in the care of the patient.: Yes I have reviewed all pertinent clinical information: Yes Notes (Text): 04/24/18 22:44 Patient seen and examined with resident. Case discussed and agreed with assessment and plan of management.
[2018-04-24 19:13] LABS: LIPASE 153 U/L (23-300)
[2018-04-24 19:13] LABS: VENOUS BLOOD GAS BASE EXCESS 1.2 mmol/L (0.0-2.0); VENOUS BLOOD GAS PCO2 44 mmHg (40-60); VENOUS BLOOD GAS PO2 20 mm/Hg (30-55); VENOUS BLOOD PH 7.39 (7.32-7.43)
[2018-04-24] MEDS ORDERED: metroNIDAZOLE 500mg/100ml NS 100 ML IVPB ONE (20:17)
[2018-04-24 22:27] VITALS: RESP 20
[2018-04-24] MEDS: Sodium Chloride 0.9% 1,000 ML IV SCH (22:55)
[2018-04-25] MEDS: Sodium Chloride 0.9% 1,000 ML IV SCH ×2 (02:31→09:20)
[2018-04-25] MEDS: metroNIDAZOLE 500mg/100ml NS 100 ML IVPB SCH ×2 (04:41→12:10)
[2018-04-25 06:28] LABS: BASO % 0.3 % (0.0-2.0); EOS # 0.1 K/uL (0.0-0.7); EOS % 0.8 % (0.0-4.0); HEMOGLOBIN 11.6 g/dL (12.0-16.0); LYMPH # 1.4 K/uL (1.0-4.3); LYMPH % 17.3 % (20.0-40.0); MEAN CELL VOLUME 89.7 fl (81.0-99.0); MEAN CORPUSCULAR HEMOGLOBIN 30.2 pg (27.0-31.0); MEAN CORPUSCULAR HGB CONC 33.7 g/dL (33.0-37.0); MEAN PLATELET VOLUME 8.2 fl (7.2-11.7); MONO # 0.4 K/uL (0.0-0.8); MONO % 5.4 % (0.0-10.0); NEUT # 6.2 K/uL (1.8-7.0); NEUT % 76.2 % (50.0-75.0); NRBC % 0.1 % (0.0-0.0); RBC 3.84 Mil/uL (3.80-5.20); RED CELL DISTRIBUTION WIDTH 13.3 % (11.5-14.5); WHITE BLOOD COUNT 8.1 K/uL (4.8-10.8)
[2018-04-25 06:56] LABS: BLOOD UREA NITROGEN 10 mg/dl (7-17); GFR NON-AFRICAN AMERICAN > 60
[2018-04-25] MEDS ORDERED: Potassium Chloride 20 mEq 100 ML IVPB SCH (08:00)
[2018-04-25 08:01] VITALS: BP 121/70; PULSE 90; TEMP 98.9; O2SAT 98
[2018-04-25] MEDS ORDERED: Potassium Chloride 20 mEq ER Tab PO ONE (09:27)
--- NOTE | 2018-04-25 13:57 | CP.PCM.DIS ---
<LaAlexey - Last Filed: 04/25/18 13:54> Provider - Provider Date of Admission: 04/24/18 18:43 Attending physician: Juan Rouse MD Primary care physician: Dr Cristy Sahu at [facility] Consults: none Time Spent in preparation of Discharge (in minutes): 30 Diagnosis - Discharge Diagnosis (1) Colitis Status: Acute Comment: -Ciprofloxacin and Metronidazole x 7 days, Rx were given. -PRN Zofran. Hospital Course - Lab Results Lab Results: Most Recent Lab Values WBC 8.1 K/uL (4.8-10.8) 04/25/18 05:25 RBC 3.84 Mil/uL (3.80-5.20) 04/25/18 05:25 Hgb 11.6 g/dL (12.0-16.0) L 04/25/18 05:25 Hct 34.4 % (34.0-47.0) 04/25/18 05:25 MCV 89.7 fl (81.0-99.0) 04/25/18 05:25 MCH 30.2 pg (27.0-31.0) 04/25/18 05:25 MCHC 33.7 g/dL (33.0-37.0) 04/25/18 05:25 RDW 13.3 % (11.5-14.5) 04/25/18 05:25 Plt Count 248 K/uL (130-400) 04/25/18 05:25 MPV 8.2 fl (7.2-11.7) 04/25/18 05:25 Neut % (Auto) 76.2 % (50.0-75.0) H 04/25/18 05:25 Lymph % (Auto) 17.3 % (20.0-40.0) L 04/25/18 05:25 Davison % (Auto) 5.4 % (0.0-10.0) 04/25/18 05:25 Eos % (Auto) 0.8 % (0.0-4.0) 04/25/18 05:25 Baso % (Auto) 0.3 % (0.0-2.0) 04/25/18 05:25 Neut # (Auto) 6.2 K/uL (1.8-7.0) 04/25/18 05:25 Lymph # (Auto) 1.4 K/uL (1.0-4.3) 04/25/18 05:25 Davison # (Auto) 0.4 K/uL (0.0-0.8) 04/25/18 05:25 Eos # (Auto) 0.1 K/uL (0.0-0.7) 04/25/18 05:25 Baso # (Auto) 0.0 K/uL (0.0-0.2) 04/25/18 05:25 Neutrophils % (Manual) 90 % (42-75) H 04/24/18 14:35 Band Neutrophils % 1 % (0-2) 04/24/18 14:35 Lymphocytes % (Manual) 8 % (20-50) L 04/24/18 14:35 Monocytes % (Manual) 1 % (0-10) 04/24/18 14:35 Platelet Estimate Normal (NORMAL) 04/24/18 14:35 RBC Morphology Normal (NORMAL) 04/24/18 14:35 pO2 20 mm/Hg (30-55) L 04/24/18 19:10 VBG pH 7.39 (7.32-7.43) 04/24/18 19:10 VBG pCO2 44 mmHg (40-60) 04/24/18 19:10 VBG HCO3 24.1 mmol/L 04/24/18 19:10 VBG Total CO2 28.0 mmol/L (22-28) 04/24/18 19:10 VBG O2 Sat (Calc) 32.3 % (40-65) L 04/24/18 19:10 VBG Base Excess 1.2 mmol/L (0.0-2.0) 04/24/18 19:10 VBG Potassium 3.9 mmol/L (3.6-5.2) 04/24/18 19:10 Sodium 136.0 mmol/L (132-148) 04/24/18 19:10 Chloride 103.0 mmol/L (98-107) 04/24/18 19:10 Glucose 117 mg/dL (65-105) H 04/24/18 19:10 Lactate 1.3 mmol/L (0.7-2.1) 04/24/18 19:10 FiO2 21.0 % 04/24/18 19:10 Sodium 137 mmol/l (132-148) 04/25/18 05:25 Potassium 3.2 MMOL/L (3.6-5.0) L 04/25/18 05:25 Chloride 104 mmol/L (98-107) 04/25/18 05:25 Carbon Dioxide 25 mmol/L (22-30) 04/25/18 05:25 Anion Gap 11 (10-20) 04/25/18 05:25 BUN 10 mg/dl (7-17) 04/25/18 05:25 Creatinine 0.8 mg/dl (0.7-1.2) 04/25/18 05:25 Est GFR ( Amer) > 60 04/25/18 05:25 Est GFR (Non-Af Amer) > 60 04/25/18 05:25 Random Glucose 108 mg/dL (65-105) H 04/25/18 05:25 Calcium 8.0 mg/dL (8.4-10.2) L 04/25/18 05:25 Total Bilirubin 0.6 mg/dl (0.2-1.3) 04/24/18 14:35 AST 32 U/L (14-36) 04/24/18 14:35 ALT 28 U/L (9-52) 04/24/18 14:35 Alkaline Phosphatase 117 U/L (38-126) 04/24/18 14:35 Total Protein 8.8 G/DL (6.3-8.2) H 04/24/18 14:35 Albumin 4.7 g/dL (3.5-5.0) 04/24/18 14:35 Globulin 4.1 gm/dL (2.2-3.9) H 04/24/18 14:35 Albumin/Globulin Ratio 1.1 (1.0-2.1) 04/24/18 14:35 Lipase 153 U/L (23-300) 04/24/18 14:35 Venous Blood Potassium 3.9 mmol/L (3.6-5.2) 04/24/18 19:10 - Hospital Course Hospital Course: 52 y/o female patient presented to the ED complaining of 4 days of moderate abodiman pain, >15 episodes of nbnb vomiting and watery non-bloody diarrhea. --CT of abdomen: nonspecific infectious/inflammatory enteritis. Diffuse fatty infiltration in the colonic wall likely related to chronic colitis. --Pt stayed overnight with Zofran, IV Ceftriaxone and IV Metronidazole. Today pt reported feeling better, with NO nausea, vomiting or diarrhea. Pt wa given PO potassium chloride for treatment of hypokalemia, pt was able to tolerate PO liwuid diet this morning and regular diet at lunch. Pt stable, afebrile, no leukocytosis in labs, was then discharged with Rx for 7 days treatment for gastroenteritis/Colitits with PO metronidazole and ciprofloxacin, and PRN ZOfran. Will f/u with PCP within 1 week. - Date & Time of H&P Date of H&P: 04/24/18 Time of H&P: 19:04 Discharge Exam - Head Exam Head Exam: NORMAL INSPECTION - Eye Exam Eye Exam: EOMI, Normal appearance - ENT Exam ENT Exam: Mucous Membranes Moist - Neck Exam Neck exam: Full Rom, Normal Inspection - Respiratory Exam Respiratory Exam: NORMAL BREATHING PATTERN. absent: Rhonchi, Wheezes, Respiratory Distress - Cardiovascular Exam Cardiovascular Exam: REGULAR RHYTHM, +S1, +S2 - GI/Abdominal Exam GI & Abdominal Exam: Normal Bowel Sounds, Soft. absent: Distended, Guarding, Rebound, Rigid, Tenderness - Back Exam Back exam: absent: CVA tenderness (L), CVA tenderness (R) - Neurological Exam Neurological exam: Alert, Oriented x3 Discharge Plan - Discharge Medications Prescriptions: Ciprofloxacin [Cipro] 500 mg PO BID 7 Days tab Metronidazole [Flagyl] 500 mg PO TID 7 Days tablet Ondansetron [Zofran] 4 mg PO Q8H PRN #10 tab PRN Reason: Nausea/Vomiting - Follow Up Plan Condition: FAIR Disposition: HOME/ ROUTINE Instructions: Diarrhea in Adolescents and Adults, Colitis (DC) Additional Instructions: -Por favor, siga jaki dieta suave sin lisha sheets, grasas, picantes, sodas o alcohol. -Por favor hacer jaki yeison con villalpando medico primario en 1 semana para seguimiento. (DISCHARGE AFTER PT EATS AND TOLERATES LUNCH, THANK YOU) Referrals: [facility] [Outside] <Juan Rouse - Last Filed: 04/25/18 17:00> Provider - Provider Date of Admission: 04/24/18 18:43 Attending physician: Juan Rouse MD Hospital Course - Lab Results Lab Results: Most Recent Lab Values WBC 8.1 K/uL (4.8-10.8) 04/25/18 05:25 RBC 3.84 Mil/uL (3.80-5.20) 04/25/18 05:25 Hgb 11.6 g/dL (12.0-16.0) L 04/25/18 05:25 Hct 34.4 % (34.0-47.0) 04/25/18 05:25 MCV 89.7 fl (81.0-99.0) 04/25/18 05:25 MCH 30.2 pg (27.0-31.0) 04/25/18 05:25 MCHC 33.7 g/dL (33.0-37.0) 04/25/18 05:25 RDW 13.3 % (11.5-14.5) 04/25/18 05:25 Plt Count 248 K/uL (130-400) 04/25/18 05:25 MPV 8.2 fl (7.2-11.7) 04/25/18 05:25 Neut % (Auto) 76.2 % (50.0-75.0) H 04/25/18 05:25 Lymph % (Auto) 17.3 % (20.0-40.0) L 04/25/18 05:25 Davison % (Auto) 5.4 % (0.0-10.0) 04/25/18 05:25 Eos % (Auto) 0.8 % (0.0-4.0) 04/25/18 05:25 Baso % (Auto) 0.3 % (0.0-2.0) 04/25/18 05:25 Neut # (Auto) 6.2 K/uL (1.8-7.0) 04/25/18 05:25 Lymph # (Auto) 1.4 K/uL (1.0-4.3) 04/25/18 05:25 Davison # (Auto) 0.4 K/uL (0.0-0.8) 04/25/18 05:25 Eos # (Auto) 0.1 K/uL (0.0-0.7) 04/25/18 05:25 Baso # (Auto) 0.0 K/uL (0.0-0.2) 04/25/18 05:25 Neutrophils % (Manual) 90 % (42-75) H 04/24/18 14:35 Band Neutrophils % 1 % (0-2) 04/24/18 14:35 Lymphocytes % (Manual) 8 % (20-50) L 04/24/18 14:35 Monocytes % (Manual) 1 % (0-10) 04/24/18 14:35 Platelet Estimate Normal (NORMAL) 04/24/18 14:35 RBC Morphology Normal (NORMAL) 04/24/18 14:35 pO2 20 mm/Hg (30-55) L 04/24/18 19:10 VBG pH 7.39 (7.32-7.43) 04/24/18 19:10 VBG pCO2 44 mmHg (40-60) 04/24/18 19:10 VBG HCO3 24.1 mmol/L 04/24/18 19:10 VBG Total CO2 28.0 mmol/L (22-28) 04/24/18 19:10 VBG O2 Sat (Calc) 32.3 % (40-65) L 04/24/18 19:10 VBG Base Excess 1.2 mmol/L (0.0-2.0) 04/24/18 19:10 VBG Potassium 3.9 mmol/L (3.6-5.2) 04/24/18 19:10 Sodium 136.0 mmol/L (132-148) 04/24/18 19:10 Chloride 103.0 mmol/L (98-107) 04/24/18 19:10 Glucose 117 mg/dL (65-105) H 04/24/18 19:10 Lactate 1.3 mmol/L (0.7-2.1) 04/24/18 19:10 FiO2 21.0 % 04/24/18 19:10 Sodium 137 mmol/l (132-148) 04/25/18 05:25 Potassium 3.2 MMOL/L (3.6-5.0) L 04/25/18 05:25 Chloride 104 mmol/L (98-107) 04/25/18 05:25 Carbon Dioxide 25 mmol/L (22-30) 04/25/18 05:25 Anion Gap 11 (10-20) 04/25/18 05:25 BUN 10 mg/dl (7-17) 04/25/18 05:25 Creatinine 0.8 mg/dl (0.7-1.2) 04/25/18 05:25 Est GFR ( Amer) > 60 04/25/18 05:25 Est GFR (Non-Af Amer) > 60 04/25/18 05:25 Random Glucose 108 mg/dL (65-105) H 04/25/18 05:25 Calcium 8.0 mg/dL (8.4-10.2) L 04/25/18 05:25 Total Bilirubin 0.6 mg/dl (0.2-1.3) 04/24/18 14:35 AST 32 U/L (14-36) 04/24/18 14:35 ALT 28 U/L (9-52) 04/24/18 14:35 Alkaline Phosphatase 117 U/L (38-126) 04/24/18 14:35 Total Protein 8.8 G/DL (6.3-8.2) H 04/24/18 14:35 Albumin 4.7 g/dL (3.5-5.0) 04/24/18 14:35 Globulin 4.1 gm/dL (2.2-3.9) H 04/24/18 14:35 Albumin/Globulin Ratio 1.1 (1.0-2.1) 04/24/18 14:35 Lipase 153 U/L (23-300) 04/24/18 14:35 Venous Blood Potassium 3.9 mmol/L (3.6-5.2) 04/24/18 19:10 Attending/Attestation - Attestation I have personally seen and examined this patient.: Yes I have fully participated in the care of the patient.: Yes I have reviewed all pertinent clinical information, including history, physical exam and plan: Yes Notes (Text): 04/25/18 16:59 Patient seen and examined with resident. Case discussed and agreed with assessment
== END 2018-04-25 14:28 | disposition home or self-care (01) ==
LOC: H.ER 13:51 → H.ERHOLD 18:43 → H.MEDSURG1 22:15
DX: K52.9 Noninfective gastroenteritis and colitis, unspecified (principal); Z98.51 Tubal ligation status; Z82.49 Family history of ischemic heart disease and other diseases of the circulatory system; E87.6 Hypokalemia
CPT/HCPCS: 36415; 74177; 80048; 80053; 81025; 82803; 83690; 85025; 87040; 96361; 96365; 96375; 99284; G0378; J0696; J1885; J2405; J2765; J7030; Q9967

== ENCOUNTER 2018-09-24 08:18 | Emergency (ER) | payer SELFPAY ==
[2018-09-24 08:21] VITALS: RESP 16; O2SAT 98
[2018-09-24 08:22] VITALS: BMI 36.2
--- NOTE | 2018-09-24 09:25 | ED PDOC ---
HPI: CCC, URI, Sore Throat Time Seen by Provider: 09/24/18 08:44 Chief Complaint (Nursing): ENT Problem Chief Complaint (Provider): Throat pain History Per: Patient History/Exam Limitations: no limitations Onset/Duration Of Symptoms: Days (15) Current Symptoms Are (Timing): Still Present Additional Complaint(s): Throat pain for 15 days, but able to swallow. Cough, green phlegm. No nasal congestion, dyspnea, weakness, abd pain, chest pain, fever, headaches, dizziness. Past Medical History Vital Signs: Last Vital Signs Temp 97.9 F 09/24/18 08:20 Pulse 88 09/24/18 08:20 Resp 16 09/24/18 08:20 BP 154/87 H 09/24/18 08:20 Pulse Ox 98 09/24/18 08:20 Primary Care Provider: FAMILY PROVIDER,NO - Medical History PMH: Gastritis Denies: HIV, Hypercholesterolemia, Chronic Kidney Disease - Surgical History Surgical History: - Family History Family History: States: Unknown Family Hx - Home Medications Home Medications: Ambulatory Orders Medication Instructions Recorded Omeprazole 20 mg PO DAILY 04/24/18 Ciprofloxacin [Cipro] 500 mg PO BID 7 Days tab 04/25/18 Metronidazole [Flagyl] 500 mg PO TID 7 Days tablet 04/25/18 Ondansetron [Zofran] 4 mg PO Q8H PRN #10 tab 04/25/18 Benzonatate [Tessalon Perles] 100 mg PO BID PRN 5 Days sgl 09/24/18 Ibuprofen [Motrin] 600 mg PO TID 7 Days tab 09/24/18 - Allergies Allergies/Adverse Reactions: Allergies Allergy/AdvReac Type Severity Reaction Status Date / Time No Known Allergies Allergy Verified 09/24/18 08:38 Review of Systems ROS Statement: Except As Marked, All Systems Reviewed And Found Negative ENT: Positive for: Throat Pain Respiratory: Positive for: Cough, Sputum Physical Exam - Reviewed Nursing Documentation Reviewed: Yes Vital Signs Reviewed: Yes - Physical Exam Appears: Positive for: Non-toxic, No Acute Distress Head Exam: Positive for: ATRAUMATIC, NORMAL INSPECTION, NORMOCEPHALIC Skin: Positive for: Normal Color, Warm, DRY Eye Exam: Positive for: EOMI, Normal appearance, PERRL ENT: Positive for: Normal ENT Inspection Neck: Positive for: Normal, Painless ROM Cardiovascular/Chest: Positive for: Regular Rate, Rhythm Respiratory: Positive for: CNT, Normal Breath Sounds Gastrointestinal/Abdominal: Positive for: Normal Exam, Soft. Negative for: Tenderness Back: Positive for: Normal Inspection. Negative for: L CVA Tenderness, R CVA Tenderness Extremity: Positive for: Normal ROM. Negative for: Tenderness Neurological/Psych: Positive for: Awake, Alert, Normal Tone - ECG O2 Sat by Pulse Oximetry: 98 Pulse Ox Interpretation: Normal - Progress ED Course And Treament: 1114: Stable. AAOx3. Tolerated PO. Fu with pcp. Disposition - Clinical Impression Clinical Impression: URI (upper respiratory infection), HTN (hypertension) - Patient ED Disposition Is Patient to be Admitted: No Counseled Patient/Family Regarding: Studies Performed, Diagnosis, Need For Followup, Rx Given - Disposition Referrals: [facility] [Outside] - 09/25/18 Disposition: Routine/Home Disposition Time: 11:15 Condition: STABLE Additional Instructions: Return if not better in 3 days. Prescriptions: Benzonatate [Tessalon Perles] 100 mg PO BID PRN 5 Days sgl PRN Reason: Cough Ibuprofen [Motrin] 600 mg PO TID 7 Days tab Instructions: High Blood Pressure in Adults, Viral Upper Respiratory Infection, Adult (DC) Forms: [facility] School/Work Excuse Print Language: MALTESE
[2018-09-24 16:17] VITALS: BP 97/65; PULSE 68; TEMP 98.2
== END 2018-09-24 15:15 | disposition home or self-care (01) ==
LOC: H.ER 08:18
DX: J06.9 Acute upper respiratory infection, unspecified (principal); I10 Essential (primary) hypertension